=== PATIENT | male | born 1960 | race Caucasian/White ===

== ENCOUNTER 2020-08-14 16:06 | Inpatient (IN) ==
[2020-08-14] MEDS ORDERED: SODIUM CHLORIDE 0.9% 1000ML 1,000 ML IV STA (16:24)
[2020-08-14] MEDS ORDERED: ONDANSETRON INJ 2 MG/ML 2 ML VIAL IV STA (16:24)
--- NOTE | 2020-08-14 16:49 | XRay Report ---
XR KUB/Abdomen 1 view CLINICAL HISTORY: vomiting COMPARISON STUDY: 08/14/2020 FINDINGS: There are surgical clips present within the right upper quadrant consistent with a prior ch olecystectomy. There are dilated small bowel loops measuring up to 71 mm in diameter. There is contra st in the bladder secondary to a prior CT scan. IMPRESSION: Progressive small bowel dilatation consistent with a small bowel obstruction. ACT 112: Negative or not required by law. Electronically signed by: Jose Nava M.D. 08/14/2020 4:48 PM
[2020-08-14] MEDS ORDERED: cefOXitin 2,000 MG/60 ML BAG IV STA (16:53)
--- NOTE | 2020-08-14 16:53 | Emergency Department Note ---
Impression & Plan SBO (small bowel obstruction), Abdominal pain, Vomiting ED Provider Note NAME: RIK IYER AGE: 60 SEX: M : 1960 ARRIVES VIA: Walk-In INFORMANT: Patient, ED PROVIDER(S): Tate Olvera DO CHIEF COMPLAINT: Abdominal pain HPI: The patient is a 60-year-old male who presented to the emergency department for abdominal pain. The patient has a history of surgery 12 years ago for adhesions which led to a bowel obstruction. He had no previous surgical history prior to that. Approximately 2 years after that he had an episode of nausea and vomiting. And was found to have another bowel obstruction. The patient has had intermittent episodes similar to this in the past. He started having abdominal pain and vomiting as well as loose bowel movements over the course the last few days. He was seen in our facility overnight for similar complaints. At that time his radiographic study was felt to be consistent with a partial small bowel obstruction. The patient was feeling somewhat improved and was able to be discharged to home. He returns today with ongoing and worsening symptoms. His significant other also states that he has had abdominal distention. He has had no fever or rectal bleeding. He notices no hematemesis. The patient noticed emesis prior to arrival. The patient called his primary care physician after leaving our facility today. He was told to come back to the emergency department because of worsening and ongoing symptoms. ROS: See above HPI for pertinent positives & negatives. A total of 10 systems reviewed and were otherwise negative. PAST MEDICAL HISTORY: See Below PAST SURGICAL HISTORY: See Below FAMILY HISTORY: See Below SOCIAL HISTORY: See Below HOME MEDICATIONS: See Below ALLERGIES: See Below VITALS: See Below PHYSICAL EXAMINATION: GENERAL: The patient is awake and alert. The patient is very uncomfortable appearing. EYES: The conjunctivae are clear. The pupils are round and reactive. EARS, NOSE, MOUTH AND THROAT: The nose is without any evidence of any deformity. NECK: The neck is nontender and supple. RESPIRATORY: Normal respiratory effort is noted there is no evidence of wheezing rhonchi or rales CARDIOVASCULAR: Regular rate and rhythm noted there no murmurs rubs or gallops normal S1 normal S2. GASTROINTESTINAL: The abdomen is moderately distended and diffusely tender. There is no specific guarding or rigidity but abdominal tenderness is moderate. MUSCULOSKELETAL/EXTREMITIES: There is no evidence of gross deformity full range of motion is noted in the hips and shoulders. SKIN: There is no obvious evidence of any rash. There are no petechiae, pallor or cyanosis noted. NEUROLOGIC: Patient is awake alert and oriented x3. MEDICAL DECISION MAKING: The patient is a 60-year-old male who presented to the emergency department for an evaluation of abdominal pain. The patient was seen in our facility last evening for similar complaints. At that time he had a CT that was consistent with an early small bowel obstruction. The patient was treated in the emergency department and was feeling much better. He was discharged to home with the hopes that he would continue to improve. The patient's symptoms continued to worsen. He started noticing worsening nausea vomiting as well as abdominal distention. The patient returned to the emergency department for further evaluation. The patient was treated with IV fluids in the emergency department. He was also treated with an NG tube. I discussed the patient's laboratory and radiographic studies with him. I also [facility] They have agreed to evaluate the patient in the emergency department for further management and disposition. Triage Nursing notes reviewed. Prior medical records reviewed Vital Signs: reviewed and remarkable for elevated blood pressure and tachycardia. Differential diagnosis: Etiologies such as appendicitis, diverticulitis, obstruction, inflammatory bowel disease, renal colic, PUD, biliary pathology, pancreatitis, mesenteric ischemia, aortic pathology, infections, genitourinary, UTI, perforated viscus, as well as others were entertained. ER treatment provided: See below Diagnostics interpreted by me: ECG: none Cardiac Monitoring: An order was placed for continuous cardiac monitoring. The monitor shows a rate of 98 bpm with sinus rhythm. Laboratory studies: As stated above and show below. Imaging studies: See below Consultation(s): I discussed this case with Andre who is [facility] They will evaluate the patient in the emergency department for further management and disposition. Past Med/Surg History Medical History Abdominal adhesions Caused SBO. Surgery required to repair. Partial small bowel obstruction Social History Smoking Status: Never smoker Preferred Language: Citizen Of [place] Feels Safe at Home: Yes Allergies Allergies Allergy/AdvReac Type Severity Reaction Status Date / Time morphine Allergy Unknown GI SYMPTOMS Verified 08/14/20 18:16 acetaminophen AdvReac Unknown NAUSEA Verified 08/14/20 18:16 oxycodone AdvReac Unknown NAUSEA Verified 08/14/20 18:16 Home Meds Home Medications Medication Instructions Recorded Confirmed esomeprazole magnesium [Nexium] 20 mg PO DAILY 08/14/20 08/14/20 multivitamin 1 tab PO DAILY 08/14/20 08/14/20 naproxen [Naprosyn] 500 mg PO BID PRN 08/14/20 08/14/20 Results & Data (ED) Vital Signs Vital Signs - 24 hr 08/14/20 16:11 Temperature 36.4 C L Temperature Source Temporal Artery Scan Pulse Rate 110 H Respiratory Rate 20 Respiratory Effort / Characteristics Non-Labored Respiratory Depth Normal Respiratory Pattern Regular Blood Pressure 149/86 H Blood Pressure Mean 107 Blood Pressure Position Sitting Pulse Oximetry 96 Oxygen Delivery Method Room Air Sepsis Recent Fever Within 48 Hours No Sepsis New/Unexplained Change in Mental Status No Sepsis Action Taken by Nursing No Action Required Home Medications Current Medication List: was personally reviewed by me Laboratory Data Attestation: I reviewed the patient's lab results. Result diagrams: 08/14/20 16:50 08/14/20 16:50 Lab Results 08/14/20 08/14/20 Range/Units 16:50 16:50 WBC 10.15 (4.8-10.8) K/uL RBC 5.19 (4.7-6.1) M/uL Hgb 16.5 (14.0-18.0) g/dL Hct 46.2 (42-52) % MCV 89.0 (80-100) fL MCH 31.8 (25-34) pg MCHC 35.7 (32-36) g/dL RDW Std Deviation 43.3 (36.4-46.3) fL RDW Coeff of Jourdan 13.2 (11.5-14.5) % Plt Count 251 (130-400) K/uL MPV 11.4 H (7.4-10.4) fL Immature Gran % (Auto) 0.2 % Neut % (Auto) 78.1 % Lymph % (Auto) 11.3 % Centre % (Auto) 10.0 % Eos % (Auto) 0.3 % Baso % (Auto) 0.1 % Neut # (Auto) 7.92 H (1.4-6.5) K/uL Lymph # (Auto) 1.15 L (1.2-3.4) K/uL Centre # (Auto) 1.02 H (0.11-0.59) K/uL Eos # (Auto) 0.03 (0-0.5) K/uL Baso # (Auto) 0.01 (0-0.2) K/uL Immature Gran # (Auto) 0.02 (0.00-0.02) K/uL Sodium 141 (136-145) mmol/L Potassium 3.9 (3.5-5.1) mmol/L Chloride 110 H (98-107) mmol/L Carbon Dioxide 23 (21-32) mmol/L Anion Gap 8.0 (3-11) BUN 27 H (7-18) mg/dl Creatinine 1.05 (0.6-1.4) mg/dl Est Cr Clr Drug Dosing 112.0 ml/min Est GFR ( Amer) 89.0 Est GFR (Non-Af Amer) 76.8 BUN/Creatinine Ratio 25.6 H (10-20) Glucose 111 H (70-99) mg/dl Calcium 8.5 (8.5-10.1) mg/dl Total Bilirubin 3.3 H (0.2-1) mg/dl AST 43 H (15-37) U/L ALT 90 H (12-78) U/L Alkaline Phosphatase 65 (45-117) U/L Total Protein 7.6 (6.4-8.2) gm/dl Albumin 3.7 (3.4-5.0) gm/dl Globulin 3.9 (2.5-4.0) gm/dl Albumin/Globulin Ratio 0.9 (0.9-2) Lipase 79 (73-393) U/L Administered Medications Fentanyl Citrate (Fentanyl Citrate 100 Mcg/2 Ml Vial) 50 mcg IV Q15M PRN PRN Reason: Pain Stop: 08/28/20 16:23 Last Admin: 08/14/20 18:00 Dose: 50 mcg Documented by: [id number] Admin: 08/14/20 17:08 Dose: 50 mcg Documented by: [id number] Discontinued Medications Sodium Chloride (Nss 1000ml) 1,000 mls @ 999 mls/hr IV .Q1H1M STA Stop: 08/14/20 17:24 Last Admin: 08/14/20 17:07 Dose: 999 mls/hr Documented by: [id number] Cefoxitin Sodium (Mefoxin) 2,000 mg in 60 mls @ 100 mls/hr IV NOW STA Stop: 08/14/20 17:28 Last Admin: 08/14/20 17:08 Dose: 100 mls/hr Documented by: [id number] Ondansetron HCl (Ondansetron Inj 2 Mg/Ml 2 Ml Vial) 4 mg IV NOW STA Stop: 08/14/20 16:25 Last Admin: 08/14/20 17:08 Dose: 4 mg Documented by: [id number] Imaging Data Radiologist's Impression: KUB X-Ray 08/14/20 16:26 XR KUB/Abdomen 1 view CLINICAL HISTORY: vomiting COMPARISON STUDY: 08/14/2020 FINDINGS: There are surgical clips present within the right upper quadrant consistent with a prior cholecystectomy. There are dilated small bowel loops measuring up to 71 mm in diameter. There is contrast in the bladder secondary to a prior CT scan. IMPRESSION: Progressive small bowel dilatation consistent with a small bowel obstruction. ACT 112: Negative or not required by law. Electronically signed by: Jose Nava M.D. 08/14/2020 4:48 PM Discharge Plan Visit Data Chief Complaint: Abdominal Pain Stated Complaint: ABD PAIN ED Provider: Tate Olvera Discharge Problem: SBO (small bowel obstruction), Abdominal pain, Vomiting Patient Disposition: Admitted As Inpatient Condition: Good Forms Stand Alone Forms: Bundle It Prescriptions Prescriptions: No Action naproxen [Naprosyn] 500 mg Tablet 500 mg PO BID PRN (Reason: Back Pain) RF: 0 esomeprazole magnesium [Nexium] 20 mg Capsule,Delayed Release(Dr/Ec) 20 mg PO DAILY RF: 0 multivitamin 1 tab PO DAILY RF: 0 Referrals Referrals: Denver Kramer DO [Primary Care Provider] - Discharge Problem: Abdominal pain Qualifiers: Abdominal location: generalized Qualified Code(s): R10.84 - Generalized abdominal pain Vomiting Qualifiers: Vomiting type: unspecified Vomiting Intractability: non-intractable Nausea presence: with nausea Qualified Code(s): R11.2 - Nausea with vomiting, unspecified
[2020-08-14] MEDS: fentaNYL citrate 100 MCG/2 ML VIAL IV PRN ×3 (17:08→19:55)
--- NOTE | 2020-08-14 17:15 | History & Physical Report ---
Date of Service August 14, 2020 Assessment & Plan (1) Small bowel obstruction: - Admit to med surg - Consult general surgery to have on board due to hx of adhesions, previous exp lap for cholecystecomy in 2011, SBO in 2008 with adhesions. No current emergent needs for surgical procedure. - KUB from earlier today and this afternoon reviewed: progressive SBO. - NPO with worsening n/v after went home this afternoon. - Place NGT to LIS - Monitor I/Os - Continue NSS at 125 ml/hr - Pain control and antiemetics ordered (2) Obesity (BMI 30.0-34.9): - BMI of 30.8, encourage diet and exercise (3) Hyperlipidemia: - Hx of such, pt is not taking statin due to not wanting to take medications, follow with PCP (4) Nausea and vomiting: - Secondary to SBO as above, antiemetics and pain medication improving sx (5) Abdominal adhesions: - As above (6) DVT prophylaxis: -teds, encourage ambulation CODE: FULL Dispo: From home, likely to remain in the hospital x 1-2 days History of Present Illness Primary Care Provider: Denver Kramer DO This is a 60-year-old male with PMHx of HLD, history of small bowel obstruction in 2008, history of exploratory lap for cholecystectomy in 2011 who presents with acute onset of abdominal pain. Patient went to [facility] on Saturday night and thought that he had food poisoning because he developed abdominal pain, nausea, vomiting and diarrhea. By Saturday he was experiencing every 15-minute vomiting and diarrhea. Patient was evaluated here in the ER earlier this morning where he was found to have a partial small bowel obstruction. After treatment with IV fluids, pain medication he preferred to go home and was instructed to return if he had any worsening symptoms and if not to follow-up with his PCP early tomorrow. He represented this afternoon after attempting to drink Gatorade and consistently had worsening nausea and vomiting. His abdomen is more distended compared to earlier, pain has been treated with IV fentanyl, and is getting antiemetics which has improved nausea. Imaging with KUB was reviewed and appears to have progressive small bowel obstruction since this morning. He is agreeable to being admitted. Allergies Allergy/AdvReac Type Severity Reaction Status Date / Time morphine Allergy Unknown GI SYMPTOMS Verified 08/14/20 18:16 acetaminophen AdvReac Unknown NAUSEA Verified 08/14/20 18:16 oxycodone AdvReac Unknown NAUSEA Verified 08/14/20 18:16 Home Medications Medication Instructions Recorded Confirmed Type esomeprazole magnesium [Nexium] 20 mg PO DAILY 08/14/20 08/14/20 History multivitamin 1 tab PO DAILY 08/14/20 08/14/20 History naproxen [Naprosyn] 500 mg PO BID PRN 08/14/20 08/14/20 History Past Med/Surg History Medical History Abdominal adhesions Caused SBO. Surgery required to repair. Partial small bowel obstruction Social History Smoking Status: Never smoker Hx Alcohol Use: No Hx Substance Use: No Preferred Language: Wolof Communication Ability: Effective Reimbursement Liaison Required: No Beliefs That Will Affect Care: Restorationist Restorationist Beliefs: Temple Current Living Situation: Spouse Other Information That Helps Us Care for You: No Feels Safe at Home: Yes Safety Concerns: Feels Safe At This Time Assistive Devices: Glasses Review of Systems Review of Systems: Constitutional: No fever, sweats or chills Eyes: No diplopia, no worsening or blurred vision ENT: normal hearing, no trouble swallowing Respiratory: No cough, sputum, dyspnea at rest or on exertion Cardiovascular: No chest pain, tightness or palpitations Abdomen: As per HPI. Musculoskeletal: No joint pain, calf pain, swelling Neurologic: No weakness, numbness/tingling, or balance problems Psychiatric: No anxiety or depression Skin: No rash or itch Physical Exam Physical Exam: General: awake, alert, no apparent distress Head: Normocephalic, atraumatic ENT: PERRL, EOMI, no pharyngeal exudate, mucous membranes moist Chest: Clear to auscultation, on room air, no adventitious breath sounds Cardiac: Regular rate and rhythm, no murmur, no JVD, normal peripheral pulses, good capillary refill Abdominal: Hyperactive BC x 4 quadrants, + highpithed tinkling in the RUQ, +didstended, +tympanic on percussioni n RUQ, minimally tender to palpation s/p pain medication, no rebound or guarding Extremities: Normal inspection, no peripheral edema or erythema, calfs nontender to palpation Psych: Normal mood and affect Neuro: AAO x 3, strength intact bilaterally and rated 5/5, no motor deficits, speech is clear, no peripheral sensory deficits Results & Data Results & Data ([facility]) Vital Signs (Past 12 Hours) Vital Signs Temp Pulse Resp BP Pulse Ox 08/14/20 16:11 36.4 C L 110 H 20 149/86 H 96 Diagnostic Findings KUB X-Ray 08/14/20 16:26 XR KUB/Abdomen 1 view CLINICAL HISTORY: vomiting COMPARISON STUDY: 08/14/2020 FINDINGS: There are surgical clips present within the right upper quadrant consistent with a prior cholecystectomy. There are dilated small bowel loops measuring up to 71 mm in diameter. There is contrast in the bladder secondary to a prior CT scan. IMPRESSION: Progressive small bowel dilatation consistent with a small bowel obstruction. ACT 112: Negative or not required by law. Electronically signed by: Jose Nava M.D. 08/14/2020 4:48 PM ECG Additional Comments: Vent. Rate : 114 BPM Atrial Rate : 114 BPM P-R Int : 170 ms QRS Dur : 136 ms QT Int : 348 ms P-R-T Axes : 039 102 017 degrees QTc Int : 479 ms Sinus tachycardia Right bundle branch block Abnormal ECG When compared with ECG of 07-JUL-2012 23:52, Right bundle branch block is now Present Confirmed by Allan Sen ([id number]) on 08/14/2020 1:06:19 PM Code Status & VTE Plan Code Status Full -discussed with the patient and his at bedside Supervising Physician Co-Signing Physician Notes Date of Service: August 14, 2020 History and physical exam performed by me as detailed by Zoey Armenta PA-C History notable for 60-year-old man with history of SBO 2008 requiring surgery, cholecystectomy who initially presented to the ER yesterday for intractable nausea, vomiting and diarrhea with abdominal pain started yesterday. Was evaluated and found to have SBO. Patient felt better and wanted to be discharged from the ER. Symptoms recurred at home necessitating representation to the ER Physical exam notable for mildly distended, firm, nontender abdomen (had just gotten some pain meds), hyperactive bowel sounds Lab work notable for bilirubin of 3.3, AST of 43, ALT of 90 CT abdomen pelvis done on initial presentation today ER last night showed dilated proximal small bowel loops with normal caliber distal small bowel consistent with SBO, bilateral nephrolithiasis. Abdominal x-ray done on representation showed progressive SBO -Small bowel obstruction. We will start with conservative management Place NG tube to drainage N.p.o. and bowel rest IV Zofran as needed nausea vomiting Pain control IV fluids Get surgery on board in case conservative management fails. Other plans as detailed by Zoey Armenta PA-C
[2020-08-14 17:18] LABS: Basophils # (auto) 0.01 K/uL (0-0.2); Basophils % (auto) 0.1 %; Eosinophils # (auto) 0.03 K/uL (0-0.5); Eosinophils % (auto) 0.3 %; Hematocrit (blood only) 46.2 % (42-52); Hemoglobin 16.5 g/dL (14.0-18.0); Immature Granulocytes # (auto) 0.02 K/uL (0.00-0.02); Immature Granulocytes % (auto) 0.2 %; Lymphocytes # (auto) 1.15 K/uL (1.2-3.4); Lymphocytes % (auto) 11.3 %; Mean Corpuscular Hemoglobin 31.8 pg (25-34); Mean Corpuscular Hgb Conc 35.7 g/dL (32-36); Mean Platelet Volume 11.4 fL (7.4-10.4); Monocytes # (auto) 1.02 K/uL (0.11-0.59); Neutrophils # (auto) 7.92 K/uL (1.4-6.5); Neutrophils % (auto) 78.1 %; Platelet Count 251 K/uL (130-400); RDW Coefficient of Variation 13.2 % (11.5-14.5); RDW Standard Deviation 43.3 fL (36.4-46.3); Red Blood Count 5.19 M/uL (4.7-6.1); White Blood Count 10.15 K/uL (4.8-10.8)
[2020-08-14 17:35] LABS: Albumin Level 3.7 gm/dl (3.4-5.0); BUN Creatinine Ratio 25.6 (10-20); Calcium 8.5 mg/dl (8.5-10.1); Est GFR (Non-African American) 76.8; Potassium 3.9 mmol/L (3.5-5.1)
[2020-08-14 17:37] LABS: Albumin Globulin Ratio 0.9 (0.9-2); Bilirubin,Total 3.3 mg/dl (0.2-1); Globulin 3.9 gm/dl (2.5-4.0); Total Protein 7.6 gm/dl (6.4-8.2)
--- NOTE | 2020-08-14 17:59 | Communication Note ---
Date of Service: August 14, 2020 History and physical exam performed by me as detailed by Zoey Armenta PA-C History notable for 60-year-old man with history of SBO 2008 requiring surgery, cholecystectomy who initially presented to the ER yesterday for intractable nausea, vomiting and diarrhea with abdominal pain started yesterday. Was evaluated and found to have SBO. Patient felt better and wanted to be discharged from the ER. Symptoms recurred at home necessitating representation to the ER Physical exam notable for mildly distended, firm, nontender abdomen (had just g soila some pain meds), hyperactive bowel sounds Lab work notable for bilirubin of 3.3, AST of 43, ALT of 90 CT abdomen pelvis done on initial presentation today ER last night showed dilated proximal small bowel loops with normal caliber distal small bowel consistent with SBO, bilateral nephrolithiasis. Abdominal x-ray done on representation showed progressive SBO -Small bowel obstruction. We will start with conservative management Place NG tube to drainage N.p.o. and bowel rest IV Zofran as needed nausea vomiting Pain control IV fluids Get surgery on board in case conservative management fails. Other plans as detailed by Zoey Armenta PA-C
[2020-08-14] MEDS ORDERED: MoRPHine SULFATE 2 MG/ML CARP IV PRN (20:41)
[2020-08-14] MEDS ORDERED: ONDANSETRON INJ 2 MG/ML 2 ML VIAL IV PRN (20:41)
[2020-08-14] MEDS ORDERED: FAMOTIDINE 20MG/5ML IV PUSH IV SCH (21:00)
[2020-08-14] MEDS: FAMOTIDINE 20 MG in SYRINGE 3 ML IV SCH (21:19)
[2020-08-14] MEDS: SODIUM CHLORIDE 0.9% 1000ML 1,000 ML IV SCH (21:20)
[2020-08-14 23:02] LABS: Appearance Urine Clear (Clear); Bilirubin Urine Negative (Negative); Blood Urine Negative (Negative); Color Urine Dark Yellow; Glucose Urine UA Negative (Negative); Ketones Urine 1+ (Negative); Leukocyte Esterase Urine Negative (Negative); Nitrite Urine Negative (Negative); Protein Urine Negative (Negative); Specific Gravity Urine 1.033 (1.000-1.030); Urobilinogen Urine Negative (Negative); pH Urine 5.5 (4.5-7.5)
[2020-08-15] MEDS: SODIUM CHLORIDE 0.9% 1000ML 1,000 ML IV SCH ×3 (05:05→20:44)
[2020-08-15 06:26] LABS: White Blood Count 7.63 K/uL (4.8-10.8)
[2020-08-15 06:27] LABS: Hematocrit (blood only) 44.6 % (42-52); Hemoglobin 15.4 g/dL (14.0-18.0); Mean Corpuscular Hgb Conc 34.5 g/dL (32-36); Mean Corpuscular Volume 89.7 fL (80-100); Mean Platelet Volume 11.3 fL (7.4-10.4); Platelet Count 240 K/uL (130-400); RDW Coefficient of Variation 13.4 % (11.5-14.5); RDW Standard Deviation 44.5 fL (36.4-46.3); Red Blood Count 4.97 M/uL (4.7-6.1)
[2020-08-15 07:04] LABS: Albumin Level 3.4 gm/dl (3.4-5.0); BUN Creatinine Ratio 22.8 (10-20); Bilirubin,Total 2.5 mg/dl (0.2-1); Calcium 8.2 mg/dl (8.5-10.1); Est GFR (African American) 103.1; Est GFR (Non-African American) 88.9; Globulin 3.5 gm/dl (2.5-4.0); Potassium 3.8 mmol/L (3.5-5.1); Total Protein 6.9 gm/dl (6.4-8.2)
[2020-08-15] MEDS: FAMOTIDINE 20 MG in SYRINGE 3 ML IV SCH ×2 (08:37→20:41)
--- NOTE | 2020-08-15 11:58 | Surgery Consultation ---
Date of Consultation August 15, 2020 Assessment & Plan (1) SBO (small bowel obstruction): 60 year-old male with recurrent SBO with history of ex lap for SBO due to adhesions 12 years ago. NGT with 700 total output since placement. No leukocytosis. Afebrile. Abdomen is soft and nontender on examination. Now passing flatus. Plan: Would recommend continued conservative management with bowel rest, NGT decompression, and pain control as needed Encouraged ambulation Continue medical management Will follow along. Dr. Brandon has seen and examined pt, agrees with above. History of Present Illness Reason for Consultation: SBO Requesting Physician: Laila Guzman PA-C Attending Physician: Teena Schwartz MD History of Present Illness Jerome is a 60 year-old male with history of small bowel obstruction secondary to adhesive band 12 years ago requiring surgery and recurrent SBO who presented to ED on 08/13/2020 with abdominal pain, nausea and vomiting. CT scan showed evidence of small bowel obstruction. Patient felt better in ED and preferred to discharge home. Symptoms increased in severity and he presented back to emergency department last evening with increasing nausea, vomiting, and abdominal distention. NGT was placed. Has history of cholecystectomy laparoscopically. Jerome states he is feeling much better today. Passing some gas and no further nausea or vomiting. Abdominal pain is currently resolved. Would like to go home tonight as he has no other days of work after today. Allergies Allergy/AdvReac Type Severity Reaction Status Date / Time morphine Allergy Unknown GI SYMPTOMS Verified 08/14/20 18:16 acetaminophen AdvReac Unknown NAUSEA Verified 08/14/20 18:16 oxycodone AdvReac Unknown NAUSEA Verified 08/14/20 18:16 Home Medications Medication Instructions Recorded Confirmed Type esomeprazole magnesium [Nexium] 20 mg PO DAILY 08/14/20 08/14/20 History multivitamin 1 tab PO DAILY 08/14/20 08/14/20 History naproxen [Naprosyn] 500 mg PO BID PRN 08/14/20 08/14/20 History Patient History Medical History (Updated 08/14/20 @ 20:36 by Tate Olvera DO) Abdominal adhesions Caused SBO. Surgery required to repair. Partial small bowel obstruction Surgical History (Updated 08/15/20 @ 12:01 by Jes Brand PA-C) H/O exploratory laparotomy Hx laparoscopic cholecystectomy Social History Smoking Status: Never smoker Hx Alcohol Use: No Hx Substance Use: No Preferred Language: [place] Communication Ability: Effective Forming Tube Selector Required: No Beliefs That Will Affect Care: Jain Jain Beliefs: Mandaen Current Living Situation: Spouse Other Information That Helps Us Care for You: No Feels Safe at Home: Yes Safety Concerns: Feels Safe At This Time Assistive Devices: None Review of Systems Review of Systems: All systems reviewed & are unremarkable except as noted in HPI & below Physical Exam Constitutional: WD/WN, vitals as above Respiratory: normal respiratory effort; no respiratory distress and no labored breathing Gastrointestinal (Abdomen): Inspection/Auscultation: abdomen normal to ins pection and + abdominal surgical scar (midline laparotomy and cholecystectomy laparoscopic scars); abdomen not distended Percussion/Palpation: abdomen soft; abdomen nontender, no guarding and abdomen not rigid NGT present with dark bilious/brown output in canister Skin: no rashes, warm and dry Psychiatric: Orientation: alert and oriented x 3 Results & Data ([facility]) Vital Signs (Past 12 Hours) Vital Signs Temp Pulse Resp BP Pulse Ox 08/15/20 07:59 36.4 C L 96 H 19 149/84 H 97 Laboratory Results 08/15/20 08/15/20 08/14/20 Range/Units 06:11 06:11 Unknown WBC 7.63 (4.8-10.8) K/uL RBC 4.97 (4.7-6.1) M/uL Hgb 15.4 (14.0-18.0) g/dL Hct 44.6 (42-52) % MCV 89.7 (80-100) fL MCH 31.0 (25-34) pg MCHC 34.5 (32-36) g/dL RDW Std Deviation 44.5 (36.4-46.3) fL RDW Coeff of Jourdan 13.4 (11.5-14.5) % Plt Count 240 (130-400) K/uL MPV 11.3 H (7.4-10.4) fL Immature Gran % (Auto) % Neut % (Auto) % Lymph % (Auto) % [place] % (Auto) % Eos % (Auto) % Baso % (Auto) % Neut # (Auto) (1.4-6.5) K/uL Lymph # (Auto) (1.2-3.4) K/uL [place] # (Auto) (0.11-0.59) K/uL Eos # (Auto) (0-0.5) K/uL Baso # (Auto) (0-0.2) K/uL Immature Gran # (Auto) (0.00-0.02) K/uL Sodium 141 (136-145) mmol/L Potassium 3.8 (3.5-5.1) mmol/L Chloride 111 H (98-107) mmol/L Carbon Dioxide 25 (21-32) mmol/L Anion Gap 5.0 (3-11) BUN 21 H (7-18) mg/dl Creatinine 0.93 (0.6-1.4) mg/dl Est Cr Clr Drug Dosing 127.0 ml/min Est GFR ( Amer) 103.1 Est GFR (Non-Af Amer) 88.9 BUN/Creatinine Ratio 22.8 H (10-20) Glucose 102 H (70-99) mg/dl Calcium 8.2 L (8.5-10.1) mg/dl Total Bilirubin 2.5 H (0.2-1) mg/dl AST 39 H (15-37) U/L ALT 77 (12-78) U/L Alkaline Phosphatase 57 (45-117) U/L Total Protein 6.9 (6.4-8.2) gm/dl Albumin 3.4 (3.4-5.0) gm/dl Globulin 3.5 (2.5-4.0) gm/dl Albumin/Globulin Ratio 1.0 (0.9-2) Lipase (73-393) U/L Urine Color Dark Yellow Urine Appearance Clear (Clear) Urine pH 5.5 (4.5-7.5) Ur Specific Sun 1.033 H (1.000-1.030) Urine Protein Negative (Negative) Urine Glucose (UA) Negative (Negative) Urine Ketones 1+ H (Negative) Urine Blood Negative (Negative) Urine Nitrite Negative (Negative) Urine Bilirubin Negative (Negative) Urine Urobilinogen Negative (Negative) Ur Leukocyte Esterase Negative (Negative) 08/14/20 08/14/20 Range/Units 16:50 16:50 WBC 10.15 (4.8-10.8) K/uL RBC 5.19 (4.7-6.1) M/uL Hgb 16.5 (14.0-18.0) g/dL Hct 46.2 (42-52) % MCV 89.0 (80-100) fL MCH 31.8 (25-34) pg MCHC 35.7 (32-36) g/dL RDW Std Deviation 43.3 (36.4-46.3) fL RDW Coeff of Jourdan 13.2 (11.5-14.5) % Plt Count 251 (130-400) K/uL MPV 11.4 H (7.4-10.4) fL Immature Gran % (Auto) 0.2 % Neut % (Auto) 78.1 % Lymph % (Auto) 11.3 % [place] % (Auto) 10.0 % Eos % (Auto) 0.3 % Baso % (Auto) 0.1 % Neut # (Auto) 7.92 H (1.4-6.5) K/uL Lymph # (Auto) 1.15 L (1.2-3.4) K/uL [place] # (Auto) 1.02 H (0.11-0.59) K/uL Eos # (Auto) 0.03 (0-0.5) K/uL Baso # (Auto) 0.01 (0-0.2) K/uL Immature Gran # (Auto) 0.02 (0.00-0.02) K/uL Sodium 141 (136-145) mmol/L Potassium 3.9 (3.5-5.1) mmol/L Chloride 110 H (98-107) mmol/L Carbon Dioxide 23 (21-32) mmol/L Anion Gap 8.0 (3-11) BUN 27 H (7-18) mg/dl Creatinine 1.05 (0.6-1.4) mg/dl Est Cr Clr Drug Dosing 112.0 ml/min Est GFR ( Amer) 89.0 Est GFR (Non-Af Amer) 76.8 BUN/Creatinine Ratio 25.6 H (10-20) Glucose 111 H (70-99) mg/dl Calcium 8.5 (8.5-10.1) mg/dl Total Bilirubin 3.3 H (0.2-1) mg/dl AST 43 H (15-37) U/L ALT 90 H (12-78) U/L Alkaline Phosphatase 65 (45-117) U/L Total Protein 7.6 (6.4-8.2) gm/dl Albumin 3.7 (3.4-5.0) gm/dl Globulin 3.9 (2.5-4.0) gm/dl Albumin/Globulin Ratio 0.9 (0.9-2) Lipase 79 (73-393) U/L Urine Color Urine Appearance (Clear) Urine pH (4.5-7.5) Ur Specific [place] (1.000-1.030) Urine Protein (Negative) Urine Glucose (UA) (Negative) Urine Ketones (Negative) Urine Blood (Negative) Urine Nitrite (Negative) Urine Bilirubin (Negative) Urine Urobilinogen (Negative) Ur Leukocyte Esterase (Negative) Diagnostic Findings CT abd pelvis oral and IV con CLINICAL HISTORY: Nausea, vomiting, diarrhea. History of small bowel obstruction. Abnormal x-ray. COMPARISON STUDY: 07/21/2013, supine abdomen dated 08/14/2020 TECHNIQUE: The patient was scanned following administration of dilute oral contrast, and in a dynamic helical fashion during intravenous administration of 90 cc of Optiray 320 A dose lowering technique was utilized adhering to the principles of ALARA. CT DOSE: 1293.50 mGy.cm FINDINGS: Lower chest: There are bibasilar parenchymal opacities, likely atelectatic Liver: There is hepatic steatosis. No focal hepatic masses are visualized. Gallbladder: Surgically absent Spleen: Normal in size and attenuation. Pancreas: Unremarkable. Adrenal glands: Unremarkable. Kidneys: There is bilateral nephrolithiasis. There is no hydronephrosis. No alessandro id renal masses are visualized. Bowel: There are dilated small bowel loops with air-fluid levels measuring up to 49 mm in diameter. The distal small bowel is of normal caliber. The findings are indicative of a small bowel obstruction. The findings are somewhat similar to the preceding study. There is no evidence of acute diverticulitis. There is no evidence of acute appendicitis. Peritoneum: There is no intraperitoneal free air or abdominal ascites. Vasculature: The abdominal aorta is normal in course and caliber. Adenopathy: None. Pelvic viscera: The bladder, and pelvic viscera are unremarkable. Skeletal structures: No destructive osseous lesions are seen. IMPRESSION: 1. Dilated proximal small bowel loops with normal caliber distal small bowel. The findings are consistent with a small bowel obstruction. 2. No evidence of free air 3. Bilateral nephrolithiasis 4. Bibasilar parenchymal opacities statistically atelectatic XR KUB/Abdomen 1 view CLINICAL HISTORY: vomiting COMPARISON STUDY: 08/14/2020 FINDINGS: There are surgical clips present within the right upper quadrant consistent with a prior cholecystectomy. There are dilated small bowel loops measuring up to 71 mm in diameter. There is contrast in the bladder secondary to a prior CT scan. IMPRESSION: Progressive small bowel dilatation consistent with a small bowel obstruction.
--- NOTE | 2020-08-15 12:08 | Hospitalist Progress Note ---
Date of Service August 15, 2020 Assessment & Plan (1) Nausea and vomiting: (2) Small bowel obstruction: Patient seemed to be doing well with conservative management. NG tube drained for 50 cc of bilious fluid since admission Continue IV fluids for now Continue n.p.o. and bowel rest. 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 If doing well, may start clears and assess tolerance prior to assessing possible discharge. He is agreeable to this. Antiemetics as needed (3) Obesity (BMI 30.0-34.9): BMI of 30.8, encourage diet and exercise (4) Hyperlipidemia: Hx of such, pt is not taking statin due to not wanting to take medications, follow with PCP BP is mildly elevated since admission. Patient not a known hypertensive. No related to current medical condition. However, will continue to monitor and may get medical treatment if needed (5) DVT prophylaxis: -teds, encourage ambulation CODE: FULL Admission and Anticipated Discharge Date Admission Date: August 14, 2020 Subjective Patient seen and examined. Reports feeling better No nausea. Normal vomiting since admission No abdominal pain. Abdominal distention improved. Reports passing flatus. Denies chest pain, cough, shortness of breath Denies palpitations, exertional dyspnea Denies fevers, chills Denies dysuria, frequency, urgency Physical Exam Constitutional: + well hydrated; no acute distress Eyes: PERRL, conjunctivae normal, anicteric sclerae ENMT: NG tube in situ Respiratory: normal respiratory effort, lungs clear to auscultation Cardiovascular: Rate/Rhythm: regular rate and regular rhythm S1-S2. No pedal edema Gastrointestinal (Abdomen): normal bowel sounds, soft, nontender, no hepatosplenomegaly Musculoskeletal: no cyanosis or clubbing, extremities motor strength 5/5 Neurologic: PERRL, EOMI, accommodation nl, no face palsy, no dysarthria Psychiatric: A+Ox3, euthymic affect Results & Data Results & Data ([facility]) Vital Signs (Past 12 Hours) Vital Signs Temp Pulse Resp BP Pulse Ox 08/15/20 07:59 36.4 C L 96 H 19 149/84 H 97 Laboratory Results Laboratory Results - last 24 hr 04/08/14/20 08/14/20 16:50 16:50 Unknown WBC 10.15 RBC 5.19 Hgb 16.5 Hct 46.2 MCV 89.0 MCH 31.8 MCHC 35.7 RDW Std Deviation 43.3 RDW Coeff of Jourdan 13.2 Plt Count 251 MPV 11.4 H Immature Gran % (Auto) 0.2 Neut % (Auto) 78.1 Lymph % (Auto) 11.3 [place] % (Auto) 10.0 Eos % (Auto) 0.3 Baso % (Auto) 0.1 Neut # (Auto) 7.92 H Lymph # (Auto) 1.15 L [place] # (Auto) 1.02 H Eos # (Auto) 0.03 Baso # (Auto) 0.01 Immature Gran # (Auto) 0.02 Sodium 141 Potassium 3.9 Chloride 110 H Carbon Dioxide 23 Anion Gap 8.0 BUN 27 H Creatinine 1.05 Est Cr Clr Drug Dosing 112.0 Est GFR ( Amer) 89.0 Est GFR (Non-Af Amer) 76.8 BUN/Creatinine Ratio 25.6 H Glucose 111 H Calcium 8.5 Total Bilirubin 3.3 H AST 43 H ALT 90 H Alkaline Phosphatase 65 Total Protein 7.6 Albumin 3.7 Globulin 3.9 Albumin/Globulin Ratio 0.9 Lipase 79 Urine Color Dark Yellow Urine Appearance Clear Urine pH 5.5 Ur Specific [place] 1.033 H Urine Protein Negative Urine Glucose (UA) Negative Urine Ketones 1+ H Urine Blood Negative Urine Nitrite Negative Urine Bilirubin Negative Urine Urobilinogen Negative Ur Leukocyte Esterase Negative 08/15/20 08/15/20 06:11 06:11 WBC 7.63 RBC 4.97 Hgb 15.4 Hct 44.6 MCV 89.7 MCH 31.0 MCHC 34.5 RDW Std Deviation 44.5 RDW Coeff of Jourdan 13.4 Plt Count 240 MPV 11.3 H Immature Gran % (Auto) Neut % (Auto) Lymph % (Auto) [place] % (Auto) Eos % (Auto) Baso % (Auto) Neut # (Auto) Lymph # (Auto) [place] # (Auto) Eos # (Auto) Baso # (Auto) Immature Gran # (Auto) Sodium 141 Potassium 3.8 Chloride 111 H Carbon Dioxide 25 Anion Gap 5.0 BUN 21 H Creatinine 0.93 Est Cr Clr Drug Dosing 127.0 Est GFR ( Amer) 103.1 Est GFR (Non-Af Amer) 88.9 BUN/Creatinine Ratio 22.8 H Glucose 102 H Calcium 8.2 L Total Bilirubin 2.5 H AST 39 H ALT 77 Alkaline Phosphatase 57 Total Protein 6.9 Albumin 3.4 Globulin 3.5 Albumin/Globulin Ratio 1.0 Lipase Urine Color Urine Appearance Urine pH Ur Specific [place] Urine Protein Urine Glucose (UA) Urine Ketones Urine Blood Urine Nitrite Urine Bilirubin Urine Urobilinogen Ur Leukocyte Esterase
[2020-08-16] MEDS: SODIUM CHLORIDE 0.9% 1000ML 1,000 ML IV SCH ×2 (05:06→15:29)
[2020-08-16 07:09] LABS: Hematocrit (blood only) 42.5 % (42-52); Hemoglobin 15.1 g/dL (14.0-18.0); Mean Corpuscular Hemoglobin 31.5 pg (25-34); Mean Corpuscular Hgb Conc 35.5 g/dL (32-36); Mean Corpuscular Volume 88.5 fL (80-100); Mean Platelet Volume 10.9 fL (7.4-10.4); Platelet Count 231 K/uL (130-400); RDW Standard Deviation 42.2 fL (36.4-46.3); White Blood Count 7.22 K/uL (4.8-10.8)
[2020-08-16 07:46] LABS: Albumin Level 3.3 gm/dl (3.4-5.0); BUN Creatinine Ratio 19.5 (10-20); Calcium 8.3 mg/dl (8.5-10.1); Creatinine Clr Calc Pharmacy 135.7 ml/min; Est GFR (African American) 108.7; Est GFR (Non-African American) 93.8; Magnesium 2.1 mg/dl (1.8-2.4); Potassium 3.6 mmol/L (3.5-5.1)
[2020-08-16 07:49] LABS: Albumin Globulin Ratio 0.9 (0.9-2); Bilirubin,Total 2.8 mg/dl (0.2-1); Globulin 3.5 gm/dl (2.5-4.0); Phosphorus 2.2 mg/dl (2.5-4.9); Total Protein 6.8 gm/dl (6.4-8.2)
--- NOTE | 2020-08-16 08:40 | Surgery Progress Note ---
Date of Service August 16, 2020 Assessment & Plan (1) SBO (small bowel obstruction): 60 year-old male with recurrent SBO with history of ex lap for SBO due to adhesions 12 years ago. NGT with 550 last shift. No leukocytosis. Afebrile. Abdomen is soft and nontender on examination. +passing flatus and liquid stool. Plan: Can discontinue NGT, start clears slowly continue ambulating hallway continue medical management Dr. Brandon was present during my examination, agrees with above. Admission and Anticipated Discharge Date Admission Date: August 14, 2020 Subjective feeling good still passing gas and had some diarrhea again no abdominal pain, some gas pain but no pain similar to pain that brought him to the ED no distention ambulating hallway multiple times Physical Exam Constitutional: WD/WN, vitals as above Respiratory: normal respiratory effort; no respiratory distress and no labored breathing Gastrointestinal (Abdomen): Inspection/Auscultation: abdomen normal to inspection and + abdominal surgical scar (midline laparotomy scar, laparoscopic cholecystectomy scars); abdomen not distended Percussion/Palpation: abdomen soft; abdomen nontender, no guarding and abdomen not rigid Skin: no rashes, warm and dry Results & Data ([facility]) Vital Signs (Past 12 Hours) Vital Signs Temp Pulse Resp BP Pulse Ox 08/16/20 08:03 36.8 C 93 H 18 133/82 95 08/15/20 23:30 36.7 C 88 16 144/82 H 94 Laboratory Results 08/16/20 08/16/20 Range/Units 06:47 06:47 WBC 7.22 (4.8-10.8) K/uL RBC 4.80 (4.7-6.1) M/uL Hgb 15.1 (14.0-18.0) g/dL Hct 42.5 (42-52) % MCV 88.5 (80-100) fL MCH 31.5 (25-34) pg MCHC 35.5 (32-36) g/dL RDW Std Deviation 42.2 (36.4-46.3) fL RDW Coeff of Jourdan 13.0 (11.5-14.5) % Plt Count 231 (130-400) K/uL MPV 10.9 H (7.4-10.4) fL Sodium 141 (136-145) mmol/L Potassium 3.6 (3.5-5.1) mmol/L Chloride 110 H (98-107) mmol/L Carbon Dioxide 27 (21-32) mmol/L Anion Gap 4.0 (3-11) BUN 17 (7-18) mg/dl Creatinine 0.87 (0.6-1.4) mg/dl Est Cr Clr Drug Dosing 135.7 ml/min Est GFR ( Amer) 108.7 Est GFR (Non-Af Amer) 93.8 BUN/Creatinine Ratio 19.5 (10-20) Glucose 83 (70-99) mg/dl Calcium 8.3 L (8.5-10.1) mg/dl Phosphorus 2.2 L (2.5-4.9) mg/dl Magnesium 2.1 (1.8-2.4) mg/dl Total Bilirubin 2.8 H (0.2-1) mg/dl AST 36 (15-37) U/L ALT 75 (12-78) U/L Alkaline Phosphatase 58 (45-117) U/L Total Protein 6.8 (6.4-8.2) gm/dl Albumin 3.3 L (3.4-5.0) gm/dl Globulin 3.5 (2.5-4.0) gm/dl Albumin/Globulin Ratio 0.9 (0.9-2)
[2020-08-16] MEDS ORDERED: POTASSIUM PHOS 3 MMOL/1 ML INFUSION IV STA (08:45)
[2020-08-16] MEDS ORDERED: POTASSIUM PHOSPHATE 24 MMOL in SODIUM CHLORIDE 0.9% 500 ML IV ONE (09:15)
[2020-08-16] MEDS: FAMOTIDINE 20 MG in SYRINGE 3 ML IV SCH (09:18)
--- NOTE | 2020-08-16 16:05 | Discharge Summary ---
Date of Service August 16, 2020 Admission HPI Per Admitting Provider This is a 60-year-old male with PMHx of HLD, history of small bowel obstruction in 2008, history of exploratory lap for cholecystectomy in 2011 who presents with acute onset of abdominal pain. Patient went to [facility] on Saturday night and thought that he had food poisoning because he developed abdominal pain, nausea, vomiting and diarrhea. By Saturday he was experiencing every 15-minute vomiting and diarrhea. Patient was evaluated here in the ER earlier this morning where he was found to have a partial small bowel obstruction. After treatment with IV fluids, pain medication he preferred to go home and was instructed to return if he had any worsening symptoms and if not to follow-up with his PCP early tomorrow. He represented this afternoon after attempting to drink Gatorade and consistently had worsening nausea and vomiting. His abdomen is more distended compared to earlier, pain has been treated with IV fentanyl, and is getting antiemetics which has improved nausea. Imaging with KUB was reviewed and appears to have progressive small bowel obstruction since this morning. He is agreeable to being admitted. Admission Exam Per Admitting Provider General: awake, alert, no apparent distress Head: Normocephalic, atraumatic ENT: PERRL, EOMI, no pharyngeal exudate, mucous membranes moist Chest: Clear to auscultation, on room air, no adventitious breath sounds Cardiac: Regular rate and rhythm, no murmur, no JVD, normal peripheral pulses, good capillary refill Abdominal: Hyperactive BC x 4 quadrants, + highpithed tinkling in the RUQ, +didstended, +tympanic on percussioni n RUQ, minimally tender to palpation s/p pain medication, no rebound or guarding Extremities: Normal inspection, no peripheral edema or erythema, calfs nontender to palpation Psych: Normal mood and affect Neuro: AAO x 3, strength intact bilaterally and rated 5/5, no motor deficits, speech is clear, no peripheral sensory deficits Principal Diagnosis Small bowel obstruction Discharge Exam Constitutional + well hydrated; no acute distress Eyes PERRL, conjunctivae normal, anicteric sclerae Respiratory normal respiratory effort, lungs clear to auscultation Cardiovascular Rate/Rhythm: regular rate and regular rhythm Gastrointestinal (Abdomen) normal bowel sounds, soft, nontender, no hepatosplenomegaly Musculoskeletal no cyanosis or clubbing, extremities motor strength 5/5 Neurologic PERRL, EOMI, accommodation nl, no face palsy, no dysarthria Psychiatric A+Ox3, euthymic affect Discharge Data Allergies Allergy/AdvReac Type Severity Reaction Status Date / Time morphine Allergy Unknown GI SYMPTOMS Verified 08/14/20 18:16 acetaminophen AdvReac Unknown NAUSEA Verified 08/14/20 18:16 oxycodone AdvReac Unknown NAUSEA Verified 08/14/20 18:16 Consultations 08/14/20 16:59 ED Decision to Admit Stat 08/14/20 20:41 Consult General Surgery Routine Hospital Course (1) Nausea and vomiting: (2) Small bowel obstruction: Patient presented with nausea, vomiting, abdominal pain to the ER. His symptoms initially improved when he wanted to go home and was discharged home from the ER only to be shortly after recurrence of symptoms. CT abdomen pelvis done on initial ER visit showed dilated proximal small bowel normal caliber distal small bowel consistent with small bowel obstruction, bilateral nephrolithiasis and no evidence of free air. KUB done on second presentation to the ER showed progressive small bowel dilatation. Patient was manage conservatively. NG tube was placed and drained a total of 1300 cc since admission. Patient symptoms resolved. Was started on clear liquid diet this morning which he has been tolerating well since without any recurrence of symptoms Has been having bowel movement. 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 He stated he is not getting paid for the days he is in the hospital. Patient educated on slow advancement of diet at home and to return to ER if symptoms recur He stated he already has appointment with his PCP Patient's BP has been running in 140s/70s most of the time since admission. He denied any history of hypertension. This may be related to acute illness. Advised to follow up this with PCP as if his BP stays persistently elevated, he will need treatment. He agreed to this (3) Obesity (BMI 30.0-34.9): BMI of 30.8, encourage diet and exercise (4) Hyperlipidemia: Hx of such, pt is not taking statin due to not wanting to take med ications, follow with PCP BP is mildly elevated since admission. Patient not a known hypertensive. No related to current medical condition. However, will continue to monitor and may get medical treatment if needed Total Time Total Time Spent Total Time Spent (In Minutes): 40 Total Time Includes: Examination of the Patient, Discharge Planning and Medication Reconciliation Discharge Plan Discharge Items Patient Disposition: Home - Self-Care Reason For Visit: Nausea, vomiting and abdominal pain Discharge Diagnosis: Small bowel obstruction Condition on Discharge: Good Activity: Resume your previous activity Non-emergency contact: Primary Care Provider Call non-emergency contact if: you have any medication questions and your symptoms worsen Follow-up/Referrals: Denver Kramer DO [Primary Care Provider] - (Date & Time 08/19/2020 12:00 PM Provider Denver Kramer DO Department [facility] ) Diet: Heart Healthy Diet Comment: Please follow prodromal advancement of diet as discussed from liquid diet Addtl Attending Provider Instructions: Mr. Archuleta. You presented to the hospital for persistent nausea, vomiting and abdominal pain. You were evaluated and found to have small bowel obstruction. This was managed conservatively with bowel rest and nasogastric tube. Your symptoms resolved. You were started on clear liquid diet and been advanced slowly. You have been tolerating this and you need to continue to slowly advance diet as tolerated. Monitor for signs of recurrence. Feel free to come back to the ER if symptoms recur. Please follow-up with your primary doctor. It was a pleasure taking care of you Pending Studies at Discharge: No Stand-Alone Forms: My [facility] [employer], Smoking Cessation Medications and DC Order Prescriptions: Continued naproxen [Naprosyn] 500 mg Tablet 500 mg PO BID PRN (Reason: Back Pain) RF: 0 esomeprazole magnesium [Nexium] 20 mg Capsule,Delayed Release(Dr/Ec) 20 mg PO DAILY RF: 0 multivitamin 1 tab PO DAILY RF: 0 Discharge Orders: Discharge Order (Routine); Ordered 08/16/20 Ordered By: Teena Schwartz Admission Data Admit Date/Time: 08/14/20 17:55 Attending Provider: Teena Schwartz I. Admit Provider: Teena Schwartz I. Primary Care Provider: Denver Kramer Other Providers: Teena Schwartz I. ; Wale Ponce Other Interventions: Discharge Summary Assessment (RN) Last Done: 08/16/20 16:02
== END 2020-08-16 17:38 | disposition home or self-care (01) | DRG 390 ==
LOC: ED 16:06 → 3W 17:55

== ENCOUNTER 2022-10-26 16:06 | Inpatient (IN) ==
[2022-10-26] MEDS ORDERED: ACETAMINOPHEN 1,000 MG/100 ML VIAL IV STA (16:37)
[2022-10-26] MEDS ORDERED: LORazepam 2 MG/1 ML VIAL IV STA (16:37)
[2022-10-26] MEDS ORDERED: SODIUM CHLORIDE 0.9% 1000ML 1,000 ML IV STA (16:37)
[2022-10-26] MEDS ORDERED: ONDANSETRON INJ 2 MG/ML 2 ML VIAL IV STA (16:37)
--- NOTE | 2022-10-26 16:37 | ED Triage Note ---
Date of Service October 26, 2022 History of Present Illness This patient was briefly evaluated while in triage. An abbreviated physical exam was performed. This patient is a 62-year-old Male who presents to the ED for evaluation of vomiting and diarrhea. Concerned for SBO. Has had this in the past. Vomiting is billious. Started with vomiting today. Diarrhea yesterday. Had bowel obstruction requiring surgery in past. Hx Cholecystectomy. Actively vomiting in triage. Physical Exam Limited Triage Exam: VITALS: Vitals are noted on the nurse's note and reviewed by myself. Vital signs stable. GENERAL: White male who is uncomfortable on presentation. He is actively vomiting in triage. HEART: Regular rate and rhythm without murmurs gallops or rubs. LUNGS: Clear to auscultation bilaterally without wheezes, rales or rhonchi. No retractions or accessory muscle use. NEURO: Patient was alert and oriented to person place and time. CN II through XII grossly intact. Initial orders for labs and / or imaging were placed and patient was placed in the waiting area until a bed is available. Please see further documentation for the full ED course. MDM / Impression Impression Impression: Generalized abdominal pain, Nausea & vomiting
[2022-10-26] MEDS ORDERED: HYDROmorphone INJ 0.5 MG/0.5 ML SYR IV PRN (16:47)
--- NOTE | 2022-10-26 16:56 | Emergency Department Note ---
Impression & Plan Generalized abdominal pain, Nausea & vomiting ED Provider Note INFORMANT: Patient and ED PROVIDER(S): Keith Fernandes MD CHIEF COMPLAINT: Abdominal pain PLAN: Disposition: Admitted Condition: Good Outpatient prescription management: none Referral: None MEDICAL DECISION MAKING: Patient presented. Had history of bowel obstruction and states feels the same. He had an IV established. Fluids were administered. The patient was treated with IV Zofran and Dilaudid. He was taken emergently for CT imaging. Patient was found to have a bowel obstruction with a possible transition in the jejunum. Patient had an NG tube placed and had a significant amount of bilious fluid removed from his stomach. Patient felt significantly better with this. I did discuss the case with general surgery on-call, Dr. Smith. She agreed with conservative management and will consult on the patient. [facility]. Case was discussed with Ashley almanza NP. Patient will be admitted under Dr. Lezama. Discussed with manager corporate strategy After review of the information above and other included data, I feel the patient requires admission. Triage Nursing notes reviewed and agree them. Vital Signs: reviewed and remarkable for no significant abnormalities Prior /Outside records reviewed: Prior surgical consultation reviewed. Differential diagnosis: Obstruction,Appendicitis, testicular torsion, infections, diverticulitis, UTI, mesenteric ischemia, aortic pathology, inflammatory bowel disease, renal colic, PUD, pancreatitis, biliary pathology, hernia, volvulus, constipation, as well as other pathologies. Diagnostics, as interpreted by me: ECG: none Cardiac Monitoring: Cardiac monitoring ordered by me: The patient was placed on continuous cardiac monitoring and observed. It revealed a normal sinus rhythm at 97 beats per minute without ectopy or evidence of dysrhythmia. Medical decision rules: none Imaging studies: CT scan as noted above. Bowel obstruction. I refer you to the EMR for further details. HPI: The patient is a 62 year old male who presents to the Emergency Room with complaints of abdominal pain. This started yesterday and is generalized. The patient also notes the following associated symptoms, nausea and vomiting. Patient also notes bloating. He has a history of bowel obstruction and states this feels the same. The patient has tried Zofran relieving factors. Current pain is rated as 9/10. Pt denies LOC, headache, fevers, chills, diaphoresis, visual changes, neck pain, chest pain, breathing difficulties, back pain, melena, hematochezia, urinary symptoms, numbness, weakness, lymphadenopathy, rash, or other complaints. PAST MEDICAL HISTORY: See Below, adhesions, bowel obstruction PAST SURGICAL HISTORY: See Below, cholecystectomy, lysis of adhesions SOCIAL HISTORY: See Below, HOME MEDICATIONS: See Below ALLERGIES: See Below VITALS: See Below PHYSICAL EXAMINATION: GENERAL: Awake, alert, uncomfortable-appearing, in no distress HENT: Normocephalic, atraumatic. Oropharynx unremarkable. EYES: Normal conjunctiva. Sclera non-icteric. NECK: Inspection normal. Non-tender. Supple. No nuchal rigidity. FROM. No masses. RESPIRATORY: Clear to auscultation. No wheezes. No rales. Normal respiratory effort. CARDIAC: Normal rate. Normal rhythm. No murmurs. No rubs. Extremities warm and well perfused. Pulses equal. No JVD. GI: Soft, moderately-distended. General tenderness to palpation. No rebound or guarding. No masses. RECTAL: Deferred. MUSCULOSKELETAL: Atraumatic. Chest examination reveals no tenderness. The back is symmetrical on inspection without obvious abnormality. There is no CVA tenderness to palpation. No joint edema. LOWER EXTREMITIES: Calves are equal size bilaterally and non-tender. No edema. No discoloration. NEURO: Normal sensorium. No sensory or motor deficits noted. SKIN: No rash or jaundice noted. Past Med/Surg History Medical History (Updated 10/26/22 @ 19:19 by Selena Lezama DO) Abdominal adhesions Caused SBO. Surgery required to repair. BPH with obstruction/lower urinary tract symptoms Dyslipidemia GERD (gastroesophageal reflux disease) Hepatic steatosis Obesity Partial small bowel obstruction Surgical History H/O exploratory laparotomy 08/25/2008 Hx laparoscopic cholecystectomy 10/2011 Family History Father Cancer Coronary heart disease Brother Diabetes Social History Smoking Status: Never smoker Hx Alcohol Use: Yes Alcohol type: beer Hx Substance Use: No Preferred Language: Maori Communication Ability: Effective Role Player Required: No Beliefs That Will Affect Care: None Current Living Situation: Spouse Other Information That Helps Us Care for You: No Feels Safe at Home: Yes Safety Concerns: Feels Safe At This Time Assistive Devices: Glasses Allergies Allergies Allergy/AdvReac Type Severity Reaction Status Date / Time morphine AdvReac Intermediate GI SYMPTOMS Verified 10/26/22 18:06 oxycodone AdvReac Intermediate NAUSEA Verified 10/26/22 18:06 hydromorphone [From Dilaudid] AdvReac Unknown Nausea Verified 10/26/22 18:57 Home Meds Home Medications Medication Instructions Recorded Confirmed esomeprazole magnesium 20 mg 20 mg PO DAILYBB 08/14/20 10/26/22 capsule,delayed release (Nexium) naproxen 500 mg tablet (Naprosyn) 500 mg PO BID PRN Back Pain 08/14/20 10/26/22 aspirin 81 mg tablet,delayed 81 mg PO .Q3DAYS 10/26/22 10/26/22 release milk thistle 500 mg capsule 500 mg PO DAILY 10/26/22 10/26/22 multivitamin 1 tab PO DAILY 10/26/22 10/26/22 Results & Data (ED) Vital Signs Vital Signs - 24 hr 10/26/22 16:34 10/26/22 17:25 10/26/22 17:33 Temperature 36.0 C L Temperature Source Temporal Artery Scan Pulse Rate 111 H 72 Pulse Rate [Right Finger] 96 H Respiratory Rate 18 10 L 22 Respiratory Effort / Characteristics Non-Labored Spontaneous Respiratory Depth Normal Blood Pressure 136/90 Blood Pressure [Right Arm] 127/81 Blood Pressure Mean 105 Blood Pressure Mean [Right Arm] 96 Pulse Oximetry 96 95 94 Oxygen Delivery Method Room Air Room Air Room Air Sepsis Recent Fever Within 48 Hours No Sepsis New/Unexplained Change in Mental Status N/A Sepsis Action Taken by Nursing No Action Required 10/26/22 17:38 Temperature Temperature Source Pulse Rate 98 H Pulse Rate [Right Finger] Respiratory Rate Respiratory Effort / Characteristics Respiratory Depth Blood Pressure Blood Pressure [Right Arm] Blood Pressure Mean Blood Pressure Mean [Right Arm] Pulse Oximetry Oxygen Delivery Method Sepsis Recent Fever Within 48 Hours Sepsis New/Unexplained Change in Mental Status Sepsis Action Taken by Nursing Laboratory Data 10/26/22 16:37 10/26/22 16:37 Lab Results 10/26/22 10/26/22 Range/Units 16:37 16:37 WBC 20.67 H (4.8-10.8) K/ul RBC 6.35 H (4.70-6.10) M/uL Hgb 19.4 H (14.0-18.0) g/dl Hct 55.9 H (42.0-52.0) % MCV 88.0 (80.0-100.0) fL MCH 30.6 (25.0-34.0) pg MCHC 34.7 (32.0-36.0) g/dL RDW Std Deviation 41.1 (36.4-46.3) fL RDW Coeff of Jourdan 12.9 (11.5-14.5) % Plt Count 325 (130-400) K/uL MPV 11.0 (9.4-12.4) fL Immature Gran % (Auto) 0.4 % Neut % (Auto) 88.1 % Lymph % (Auto) 5.8 % [place] % (Auto) 5.4 % Eos % (Auto) 0.1 % Baso % (Auto) 0.2 % Neut # (Auto) 18.21 H (1.40-6.50) K/uL Lymph # (Auto) 1.20 (1.2-3.4) K/uL [place] # (Auto) 1.11 H (0.11-0.59) K/uL Eos # (Auto) 0.02 (0-0.50) K/uL Baso # (Auto) 0.04 (0-0.2) K/uL Immature Gran # (Auto) 0.09 (0.01-0.20) K/uL Sodium 138 (136-145) mmol/L Potassium 4.1 (3.5-5.1) mmol/L Chloride 100 (98-107) mmol/L Carbon Dioxide 28 (21-32) mmol/L Anion Gap 10 (3-11) BUN 26 H (6-23) mg/dl Creatinine 1.24 (0.6-1.4) mg/dl Est Cr Clr Drug Dosing 92.4 ml/min Est GFR ( Amer) 71.8 ml/min Est GFR (Non-Af Amer) 61.9 ml/min BUN/Creatinine Ratio 21.0 H (10-20) Glucose 141 H (70-99(Fasting)) mg/dl Calcium 10.3 (8.6-10.3) mg/dl Total Bilirubin 2.8 H (0.2-1.0) mg/dl AST 33 (13-39) U/L ALT 50 (7-52) U/L Alkaline Phosphatase 70 (34-104) U/L Troponin I High Sens < 2.3 (0-20) pg/ml Total Protein 9.0 H (6.0-8.3) gm/dl Albumin 5.1 H (3.4-5.0) gm/dl Globulin 3.9 (2.5-4.0) gm/dl Albumin/Globulin Ratio 1.3 (0.9-2) Lipase 30 (11-82) U/L Administered Medications Acetaminophen (Ofirmev) 1,000 mg in 100 mls @ 400 mls/hr IV Q8H PRN PRN Reason: pain/fever Stop: 10/29/22 18:56 Last Infusion: 10/26/22 20:29 Dose: 0 mls/hr Documented By: Admin: 10/26/22 20:10 Dose: 400 mls/hr Documented By: MICHELE Famotidine 20 mg/ Syringe 5 mls @ 2.5 mls/min IV Q12H PRN PRN Reason: heartburn Stop: 11/25/22 20:38 Last Admin: 10/26/22 22:43 Dose: 2.5 mls/min Documented By: FPC Lactated Ringer's (Lr) 1,000 mls @ 125 mls/hr IV .Q8H CRISTINO Stop: 11/25/22 20:38 Last Admin: 10/26/22 20:50 Dose: 125 mls/hr Documented By: GIBRAN Ketorolac Tromethamine (Ketorolac Tromethamine 15 Mg/Ml Vial) 15 mg IV Q6H PRN PRN Reason: severe pain Stop: 10/31/22 18:56 Last Admin: 10/26/22 23:37 Dose: 15 mg Documented By: FPC Discontinued Medications Hydromorphone HCl (Hydromorphone Inj 0.5 Mg/0.5 Ml Syr) 0.5 mg IV Q15M PRN PRN Reason: Pain Stop: 11/09/22 16:46 Last Admin: 10/26/22 17:04 Dose: 0.5 mg Documented By: NRAntonette Sodium Chloride (Nss 1000ml) 1,000 mls @ 999 mls/hr IV .Q1H1M STA Stop: 10/26/22 17:37 Last Infusion: 10/26/22 19:51 Dose: 0 mls/hr Documented By: Admin: 10/26/22 17:37 Dose: 999 mls/hr Documented By: DONAVON Acetaminophen (Ofirmev) 1,000 mg in 100 mls @ 400 mls/hr IV NOW STA Stop: 10/26/22 16:51 Last Admin: 10/26/22 18:56 Dose: Not Given Documented By: MICHELE Lorazepam (Lorazepam 2 Mg/1 Ml Vial) 0.5 mg IV NOW STA Stop: 10/26/22 16:38 Last Admin: 10/26/22 18:57 Dose: Not Given Documented By: MICHELE Ondansetron HCl (Ondansetron Inj 2 Mg/Ml 2 Ml Vial) 4 mg IV NOW STA Stop: 10/26/22 16:38 Last Admin: 10/26/22 17:03 Dose: 4 mg Documented By: DONAVON Imaging Data Radiologist's Impression: Abdomen/Pelvis CT 10/26/22 16:43 CT SCAN OF THE ABDOMEN AND PELVIS WITHOUT IV CONTRAST CLINICAL HISTORY: Generalized abdominal pain. Vomiting. COMPARISON STUDY: Abdominal CT dated 08/14/2020. TECHNIQUE: CT scan of the abdomen and pelvis is performed from the lung bases to the proximal femora. Images are reviewed in the axial, sagittal, and coronal planes. IV contrast was not administered for this examination. Note that the examination is significantly suboptimal without oral and IV contrast. A dose lowering technique was utilized adhering to the principles of ALARA. CT DOSE: 1718.47 mGy.cm FINDINGS: Lung bases: The heart is normal in size and without pericardial effusion. There are scattered coronary artery calcifications. Catheter granulomas are noted. There is elevation of the left hemidiaphragm with bibasilar scarring/atelectas is. No airspace consolidation or pleural effusion is identified. Liver: The unenhanced liver is enlarged, measuring 19 cm in length. The liver demonstrates diffusely diminished attenuation indicating severe steatosis.. There is no intrahepatic biliary ductal dilatation. Gallbladder: Surgically absent noting clips in the gallbladder fossa. Spleen: Normal in size and attenuation. Pancreas: Mildly atrophic and grossly unremarkable. Adrenal glands: Unremarkable. Kidneys: The unenhanced kidneys are normal in size and without hydronephrosis. There are at least 4 nonobstructing right renal calculi which measure up to 5 mm. There are at least 5 nonobstructing left calculi which measure up to 6 mm. No ureteral stone is seen. There is no evidence of contour deforming renal mass lesion. Abdominal vasculature: The abdominal aorta is normal in course and caliber noting scattered foci of atherosclerotic calcification. Bowel: The proximal small bowel loops are distended and fluid-filled, measuring up to 5 cm in diameter. A transition point is suggested in the distal jejunum on axial image #212. The distal small bowel colon are decompressed, and the appearance is consistent with a high-grade small bowel obstruction. No focally thick-walled bowel loops are seen. No pneumatosis intestinalis or portal venous gas is identified. The appendix is well-visualized and normal. Peritoneum: There is no intraperitoneal free air or abdominal ascites. There is evidence of previous ventral hernia repair. Lymphadenopathy: None. Pelvic viscera: The bladder, prostate, and seminal vesicles are normal as visualized. There is a small fat-containing right inguinal hernia. Skeletal structures: No lytic or blastic lesions are seen. IMPRESSION: 1. Small bowel obstruction, with a transition point suggested involving the distal jejunum. This is likely on the basis of adhesions. 2. No intraperitoneal free air is seen. No focally thick-walled bowel loops are identified and there is no pneumatosis intestinalis or portal venous gas. 3. Hepatomegaly and severe hepatic steatosis. 4. Bilateral nephrolithiasis. 5. Additional findings as above. ACT 112: Negative or not required by law. Electronically signed by: Rickey Guajardo M.D. 10/26/2022 5:40 PM Discharge Plan Visit Data Chief Complaint: Abdominal Pain Stated Complaint: VOMITING, ABDOMINAL PAIN ED Provider: Keith Fernandes Discharge Problem: Generalized abdominal pain, Nausea & vomiting Patient Disposition: Admitted As Inpatient Discharge Instructions Interventions: ED Discharge Assessment Last Done: 10/26/22 20:22
[2022-10-26 17:26] LABS: Basophils # (auto) 0.04 K/uL (0-0.2); Basophils % (auto) 0.2 %; Eosinophils # (auto) 0.02 K/uL (0-0.50); Eosinophils % (auto) 0.1 %; Hematocrit (blood only) 55.9 % (42.0-52.0); Hemoglobin 19.4 g/dl (14.0-18.0); Immature Granulocytes # (auto) 0.09 K/uL (0.01-0.20); Immature Granulocytes % (auto) 0.4 %; Lymphocytes % (auto) 5.8 %; Mean Corpuscular Hemoglobin 30.6 pg (25.0-34.0); Mean Corpuscular Hgb Conc 34.7 g/dL (32.0-36.0); Monocytes # (auto) 1.11 K/uL (0.11-0.59); Monocytes % (auto) 5.4 %; Neutrophils # (auto) 18.21 K/uL (1.40-6.50); Neutrophils % (auto) 88.1 %; Platelet Count 325 K/uL (130-400); RDW Coefficient of Variation 12.9 % (11.5-14.5); RDW Standard Deviation 41.1 fL (36.4-46.3); Red Blood Count 6.35 M/uL (4.70-6.10); White Blood Count 20.67 K/ul (4.8-10.8)
[2022-10-26 17:38] LABS: Alanine Aminotransferase 50 U/L (7-52); Albumin Globulin Ratio 1.3 (0.9-2); Albumin Level 5.1 gm/dl (3.4-5.0); Alkaline Phosphatase 70 U/L (34-104); Anion Gap 10 (3-11); Aspartate Aminotransferase 33 U/L (13-39); Bilirubin,Total 2.8 mg/dl (0.2-1.0); Blood Urea Nitrogen 26 mg/dl (6-23); Calcium 10.3 mg/dl (8.6-10.3); Carbon Dioxide 28 mmol/L (21-32); Chloride 100 mmol/L (98-107); Creatinine Clr Calc Pharmacy 92.4 ml/min; Est GFR (African American) 71.8 ml/min; Est GFR (Non-African American) 61.9 ml/min; Globulin 3.9 gm/dl (2.5-4.0); Glucose 141 mg/dl (70-99(Fasting)); Lipase 30 U/L (11-82); Potassium 4.1 mmol/L (3.5-5.1); Sodium 138 mmol/L (136-145)
--- NOTE | 2022-10-26 17:41 | CT Scan Report ---
CT SCAN OF THE ABDOMEN AND PELVIS WITHOUT IV CONTRAST CLINICAL HISTORY: Generalized abdominal pain. Vomiting. COMPARISON STUDY: Abdominal CT dated 08/14/2020. TECHNIQUE: CT scan of the abdomen and pelvis is performed from the lung bases to the proximal femora. Images are reviewed in the axial, sagittal, and coronal planes. IV contrast was not administered for this examination. Note that the examination is significantly suboptimal without oral and IV contrast . A dose lowering technique was utilized adhering to the principles of ALARA. CT DOSE: 1718.47 mGy.cm FINDINGS: Lung bases: The heart is normal in size and without pericardial effusion. There are scattered coronar y artery calcifications. Catheter granulomas are noted. There is elevation of the left hemidiaphragm with bibasilar scarring/atelectasis. No airspace consolidation or pleural effusion is identified. Liver: The unenhanced liver is enlarged, measuring 19 cm in length. The liver demonstrates diffusely diminished attenuation indicating severe steatosis.. There is no intrahepatic biliary ductal dilatati on. Gallbladder: Surgically absent noting clips in the gallbladder fossa. Spleen: Normal in size and attenuation. Pancreas: Mildly atrophic and grossly unremarkable. Adrenal glands: Unremarkable. Kidneys: The unenhanced kidneys are normal in size and without hydronephrosis. There are at least 4 n onobstructing right renal calculi which measure up to 5 mm. There are at least 5 nonobstructing left calculi which measure up to 6 mm. No ureteral stone is seen. There is no evidence of contour deformin g renal mass lesion. Abdominal vasculature: The abdominal aorta is normal in course and caliber noting scattered foci of a therosclerotic calcification. Bowel: The proximal small bowel loops are distended and fluid-filled, measuring up to 5 cm in diamete r. A transition point is suggested in the distal jejunum on axial image #212. The distal small bowel colon are decompressed, and the appearance is consistent with a high-grade small bowel obstruction. N o focally thick-walled bowel loops are seen. No pneumatosis intestinalis or portal venous gas is iden tified. The appendix is well-visualized and normal. Peritoneum: There is no intraperitoneal free air or abdominal ascites. There is evidence of previous ventral hernia repair. Lymphadenopathy: None. Pelvic viscera: The bladder, prostate, and seminal vesicles are normal as visualized. There is a smal l fat-containing right inguinal hernia. Skeletal structures: No lytic or blastic lesions are seen. IMPRESSION: 1. Small bowel obstruction, with a transition point suggested involving the distal jejunum. This is l ikely on the basis of adhesions. 2. No intraperitoneal free air is seen. No focally thick-walled bowel loops are identified and there is no pneumatosis intestinalis or portal venous gas. 3. Hepatomegaly and severe hepatic steatosis. 4. Bilateral nephrolithiasis. 5. Additional findings as above. ACT 112: Negative or not required by law. Electronically signed by: Rickey Guajardo M.D. 10/26/2022 5:40 PM
[2022-10-26 17:43] LABS: Troponin I High Sensitivity < 2.3 pg/ml (0-20)
--- NOTE | 2022-10-26 18:40 | History & Physical Report ---
Date of Service October 26, 2022 Assessment & Plan (1) SIRS (systemic inflammatory response syndrome): Plan: No evidence of infection or sepsis at this time. elevated WBC and tachycardia present on admission, improved with IVF. Lactate was checked and 1.4. Cont pema ntenance IVF and plan as outlined below. (2) Small bowel obstruction: Plan: NG tube placed in the ER wtih >1L bilious output. He has received 1L NSS and will continue maintenance IVF administration. Will check daily labs and correct any electrolyte derangements as needed. Cont IV tylenol for mild pain or fever, IV Toradol for severe pain (patient has severe GI symptoms with IV narcotics), and IV antiemetics as needed. General Surgery consulted. (3) GERD (gastroesophageal reflux disease): Plan: Hold PO PPI, Pepcid 20mg IV PRN heartburn symptoms. (4) Hepatic steatosis: Plan: chronic, stable. No elevation in LFTs. (5) Hyperbilirubinemia: Plan: chronic, takes milk thistle for >20 years. Uncertain if this may be c ontributing. He has a long history of asymptomatic hyperbilirubinemia in the outpatient record. Per records, appears to have a trend of indirect hyperbilirubinemia consistent with Gilbert's syndrome. No further workup needed. DVT prophylaxis-although he may possibly require a procedure, he has elevated inflammation with SIRS process, will start Lovenox now as he is at higher risk for DVT Full Code Dispo-to floor and home after tolerating solid foods, likely after the weekend. Selena Lezama DO [facility] [address] Hospitalist History of Present Illness Chief Complaint: abdominal pain Primary Care Provider: Denver Kramer DO 62 yo M presents with generalized abdominal pain, nausea and vomiting. His pain began yesterday and is generalized. He was treated wtih IVF, Dilaudid and Zofran in the ER. CT imaging revealed a small bowel obstruction wtih a transition point in the distal jejunum, likely on the basis of adhesions. He has a history of adhesions prompting ex lap in 2008. He then underwent a lap mis in 2011 and has had additional admissions for conservative management of SBO with NG tube placement. Reports his last meal was a bologna sandwich and doritos yesterday afternoon. He developed upper abdominal pain with bloating and had vomiting and diarrhea this morning. He denies any fevers, chills, respiratory symptoms or dysuria. No other symptoms that are concerning to the patient. Allergies Allergy/AdvReac Type Severity Reaction Status Date / Time morphine AdvReac Intermediate GI SYMPTOMS Verified 10/26/22 18:06 oxycodone AdvReac Intermediate NAUSEA Verified 10/26/22 18:06 hydromorphone [From Dilaudid] AdvReac Unknown Nausea Verified 10/26/22 18:57 Home Medications Medication Instructions Recorded Confirmed Type esomeprazole magnesium 20 mg 20 mg PO DAILYBB 08/14/20 10/26/22 History capsule,delayed release (Nexium) naproxen 500 mg tablet (Naprosyn) 500 mg PO BID PRN Back Pain 08/14/20 10/26/22 History aspirin 81 mg tablet,delayed 81 mg PO .Q3DAYS 10/26/22 10/26/22 History release milk thistle 500 mg capsule 500 mg PO DAILY 10/26/22 10/26/22 History multivitamin 1 tab PO DAILY 10/26/22 10/26/22 History Past Med/Surg History Medical History (Updated 10/26/22 @ 19:19 by Selena Lezama DO) Abdominal adhesions Caused SBO. Surgery required to repair. BPH with obstruction/lower urinary tract symptoms Dyslipidemia GERD (gastroesophageal reflux disease) Hepatic steatosis Obesity Partial small bowel obstruction Surgical History H/O exploratory laparotomy 08/25/2008 Hx laparoscopic cholecystectomy 10/2011 Family History Father Cancer Coronary heart disease Brother Diabetes Social History Smoking Status: Never smoker Hx Alcohol Use: No Hx Substance Use: No Preferred Language: Italian Communication Ability: Effective Outreach Associate Required: No Beliefs That Will Affect Care: Orthodoxy Orthodoxy Beliefs: Zoroastrian Current Living Situation: Spouse Feels Safe at Home: Yes Assistive Devices: Glasses Review of Systems Review of Systems: All systems were reviewed and negative except as indicated on HPI above. Physical Exam Physical Exam: CONSTITUTIONAL: WNWD, vitals as above, generally well-appearing, NAD EYES: normal conjunctivae, no scleral icterus ENT: external ear and nose normal, oropharynx clear, NG tube in place. NECK: trachea midline RESPIRATORY: clear to auscultation bilaterally, no crackles, rales or wheezes, normal respiratory effort CARDIOVASCULAR: regular rate and rhythm, S1 and 2 heard without murmurs, gallops or rubs, no JVD, no peripheral edema CHEST: inspection of chest was normal GASTROINTESTINAL: soft, TTP in upper abdomen with some bloating, slight distension in upper abdomen, +BS MUSCULOSKELETAL: strength 5/5 throughout, head is normocephalic and atraumatic SKIN: warm and dry NEUROLOGIC: CN 2-12 grossly intact, no sensory deficit, normal cognition, normal speech, no tremor PSYCHIATRIC: alert cooperative and oriented to person, place and time. Eut hymic mood, makes good eye contact, language grossly intact, recent and remote memory grossly intact. Results & Data Results & Data Vital Signs (Past 12 Hours) Vital Signs Temp Pulse Pulse Resp BP BP Pulse Ox 10/26/22 17:38 98 H 10/26/22 17:33 96 H 22 127/81 94 10/26/22 17:25 72 10 L 95 10/26/22 16:34 36.0 C L 111 H 18 136/90 96 O2 Del Method 10/26/22 17:38 10/26/22 17:33 Room Air 10/26/22 17:25 Room Air 10/26/22 16:34 Room Air Laboratory Results Short CBC 10/26/22 Range/Units 16:37 WBC 20.67 H (4.8-10.8) K/ul Hgb 19.4 H (14.0-18.0) g/dl Hct 55.9 H (42.0-52.0) % Plt Count 325 (130-400) K/uL BMP 10/26/22 16:37 Sodium 138 Potassium 4.1 Chloride 100 Carbon Dioxide 28 BUN 26 H Creatinine 1.24 Glucose 141 H Calcium 10.3 Liver Function 10/26/22 Range/Units 16:37 Total Bilirubin 2.8 H (0.2-1.0) mg/dl AST 33 (13-39) U/L ALT 50 (7-52) U/L Alkaline Phosphatase 70 (34-104) U/L Albumin 5.1 H (3.4-5.0) gm/dl Diagnostic Findings Abdomen/Pelvis CT 10/26/22 16:43 CT SCAN OF THE ABDOMEN AND PELVIS WITHOUT IV CONTRAST CLINICAL HISTORY: Generalized abdominal pain. Vomiting. COMPARISON STUDY: Abdominal CT dated 08/14/2020. TECHNIQUE: CT scan of the abdomen and pelvis is performed from the lung bases to the proximal femora. Images are reviewed in the axial, sagittal, and coronal planes. IV contrast was not administered for this examination. Note that the examination is significantly suboptimal without oral and IV contrast. A dose lowering technique was utilized adhering to the principles of ALARA. CT DOSE: 1718.47 mGy.cm FINDINGS: Lung bases: The heart is normal in size and without pericardial effusion. There are scattered coronary artery calcifications. Catheter granulomas are noted. There is elevation of the left hemidiaphragm with bibasilar scarring/atelectasis. No airspace consolidation or pleural effusion is identified. Liver: The unenhanced liver is enlarged, measuring 19 cm in length. The liver demonstrates diffusely diminished attenuation indicating severe steatosis.. There is no intrahepatic biliary ductal dilatation. Gallbladder: Surgically absent noting clips in the gallbladder fossa. Spleen: Normal in size and attenuation. Pancreas: Mildly atrophic and grossly unremarkable. Adrenal glands: Unremarkable. Kidneys: The unenhanced kidneys are normal in size and without hydronephrosis. There are at least 4 nonobstructing right renal calculi which measure up to 5 mm. There are at least 5 nonobstructing left calculi which measure up to 6 mm. No ureteral stone is seen. There is no evidence of contour deforming renal mass lesion. Abdominal vasculature: The abdominal aorta is normal in course and caliber noting scattered foci of atherosclerotic calcification. Bowel: The proximal small bowel loops are distended and fluid-filled, measuring up to 5 cm in diameter. A transition point is suggested in the distal jejunum on axial image #212. The distal small bowel colon are decompressed, and the appearance is consistent with a high-grade small bowel obstruction. No focally thick-walled bowel loops are seen. No pneumatosis intestinalis or portal venous gas is identified. The appendix is well-visualized and normal. Peritoneum: There is no intraperitoneal free air or abdominal ascites. There is evidence of previous ventral hernia repair. Lymphadenopathy: None. Pelvic viscera: The bladder, prostate, and seminal vesicles are normal as visualized. There is a small fat-containing right inguinal hernia. Skeletal structures: No lytic or blastic lesions are seen. IMPRESSION: 1. Small bowel obstruction, with a transition point suggested involving the distal jejunum. This is likely on the basis of adhesions. 2. No intraperitoneal free air is seen. No focally thick-walled bowel loops are identified and there is no pneumatosis intestinalis or portal venous gas. 3. Hepatomegaly and severe hepatic steatosis. 4. Bilateral nephrolithiasis. 5. Additional findings as above. ACT 112: Negative or not required by law. Electronically signed by: Rickey Guajardo M.D. 10/26/2022 5:40 PM Medications Administered Current Inpatient Medications Hydromorphone HCl (Hydromorphone Inj 0.5 Mg/0.5 Ml Syr) 0.5 mg IV Q15M PRN PRN Reason: Pain Stop: 11/09/22 16:46 Last Admin: 10/26/22 17:04 Dose: 0.5 mg Code Status & VTE Plan VTE Prophylaxis Plan VTE Prophylaxis will be ordered: Yes
[2022-10-26] MEDS: ACETAMINOPHEN 1,000 MG/100 ML VIAL IV PRN (20:10)
[2022-10-26] MEDS ORDERED: ONDANSETRON INJ 2 MG/ML 2 ML VIAL IV PRN (20:39)
[2022-10-26] MEDS: LACTATED RINGER'S 1,000 ML IV SCH (20:50)
[2022-10-26 22:07] LABS: Bilirubin Direct 0.4 mg/dl (0-0.2); Bilirubin,Total 2.6 mg/dl (0.2-1.0)
[2022-10-26] MEDS: FAMOTIDINE 20 MG in SYRINGE 3 ML IV PRN (22:43)
[2022-10-26] MEDS: KETOROLAC TROMETHAMINE 15 MG/ML VIAL IV PRN (23:37)
[2022-10-27] MEDS: LACTATED RINGER'S 1,000 ML IV SCH ×3 (04:46→20:41)
[2022-10-27] MEDS: KETOROLAC TROMETHAMINE 15 MG/ML VIAL IV PRN ×3 (06:01→23:34)
[2022-10-27 06:40] LABS: Magnesium 2.1 mg/dl (1.7-2.4); Phosphorus 3.2 mg/dl (2.5-4.9)
[2022-10-27] MEDS: FAMOTIDINE 20 MG in SYRINGE 3 ML IV PRN ×2 (10:43→23:34)
[2022-10-27] MEDS: ACETAMINOPHEN 1,000 MG/100 ML VIAL IV PRN ×2 (10:51→20:14)
--- NOTE | 2022-10-27 12:34 | Surgery Consultation ---
Date of Consultation October 27, 2022 Assessment & Plan (1) SBO (small bowel obstruction): Likely secondary to adhesions. Discussed initial trial of ng decompression, bowel rest, IVF hydration. If symptoms improved, can be managed nonoperatively. If symptoms persist or worsen, discussed possibility of repeat GEOFF. At this time, there is no indication for surgical intervention. Appears hemoconcentrated with elevated H/H and WBC ct. Will monitor. History of Present Illness Reason for Consultation: small bowel obstruction Requesting Physician: Selena Lezama MD Attending Physician: Abdoulaye Kimbrough MD History of Present Illness 62 yr old man admitted with small bowel obstruction. His symptoms began after eating a bologna sandwich and doritoes. He developed cramping centralized abdominal pain, 9/10 in intensity, no radiation, associated with nausea. No relieving factors. Began with bilious vomiting Saturday morning which persisted. Also developed diarrhea, still passing flatus. Currently, NG is in place. Pain is down to 4/10. Last small bowel obstruction was 3 yrs ago and resolved nonoperatively. 14 yrs ago, developed a SBO which required GEOFF by Dr. Hodges. This was his first episode and he did not have any prior surgical history so source of adhesion was unknown. Allergies Allergy/AdvReac Type Severity Reaction Status Date / Time morphine AdvReac Intermediate GI SYMPTOMS Verified 10/26/22 18:06 oxycodone AdvReac Intermediate NAUSEA Verified 10/26/22 18:06 hydromorphone [From Dilaudid] AdvReac Unknown Nausea Verified 10/26/22 18:57 Home Medications Medication Instructions Recorded Confirmed Type esomeprazole magnesium 20 mg 20 mg PO DAILYBB 08/14/20 10/26/22 History capsule,delayed release (Nexium) naproxen 500 mg tablet (Naprosyn) 500 mg PO BID PRN Back Pain 08/14/20 10/26/22 History aspirin 81 mg tablet,delayed 81 mg PO .Q3DAYS 10/26/22 10/26/22 History release milk thistle 500 mg capsule 500 mg PO DAILY 10/26/22 10/26/22 History multivitamin 1 tab PO DAILY 10/26/22 10/26/22 History Patient History Medical History Abdominal adhesions Caused SBO. Surgery required to repair. BPH with obstruction/lower urinary tract symptoms Dyslipidemia GERD (gastroesophageal reflux disease) Hepatic steatosis Obesity Partial small bowel obstruction Surgical History H/O exploratory laparotomy 08/25/2008 Hx laparoscopic cholecystectomy 10/2011 Family History Father Cancer Coronary heart disease Brother Diabetes Social History Smoking Status: Never smoker Hx Alcohol Use: Yes Alcohol type: beer Hx Substance Use: No Preferred Language: Irish Communication Ability: Effective Field Marketing Representative Required: No Beliefs That Will Affect Care: None Current Living Situation: Spouse Other Information That Helps Us Care for You: No Feels Safe at Home: Yes Safety Concerns: Feels Safe At This Time Assistive Devices: Glasses Review of Systems Review of Systems: All systems reviewed & are unremarkable except as noted in HPI & below Physical Exam Constitutional: WD/WN, vitals as above Eyes: PERRL, conjunctivae normal, anicteric sclerae Neck: normal visual inspection and trachea midline Respiratory: normal respiratory effort, lungs clear to auscultation Cardiovascular: RRR, no murmur, no edema Gastrointestinal (Abdomen): Inspection/Auscultation: abdomen normal to inspection, + abdomen distended (mild) and + hypoactive bowel sounds Percussion/Palpation: + abdomen tender (mild central) and abdomen soft; no guarding Musculoskeletal: no cyanosis or clubbing, extremities motor strength 5/5 Neurologic: no focal motor deficits Psychiatric: A+Ox3, euthymic affect Results & Data Vital Signs (Past 12 Hours) Vital Signs Temp Pulse Resp BP Pulse Ox O2 Del Method 10/27/22 07:54 36.6 C 97 H 18 139/79 94 Room Air Laboratory Results 10/27/22 10/26/22 10/26/22 Range/Units 05:23 21:24 19:20 WBC (4.8-10.8) K/ul RBC (4.70-6.10) M/uL Hgb (14.0-18.0) g/dl Hct (42.0-52.0) % MCV (80.0-100.0) fL MCH (25.0-34.0) pg MCHC (32.0-36.0) g/dL RDW Std Deviation (36.4-46.3) fL RDW Coeff of Jourdan (11.5-14.5) % Plt Count (130-400) K/uL MPV (9.4-12.4) fL Immature Gran % (Auto) % Neut % (Auto) % Lymph % (Auto) % Barber % (Auto) % Eos % (Auto) % Baso % (Auto) % Neut # (Auto) (1.40-6.50) K/uL Lymph # (Auto) (1.2-3.4) K/uL Barber # (Auto) (0.11-0.59) K/uL Eos # (Auto) (0-0.50) K/uL Baso # (Auto) (0-0.2) K/uL Immature Gran # (Auto) (0.01-0.20) K/uL Sodium (136-145) mmol/L Potassium (3.5-5.1) mmol/L Chloride (98-107) mmol/L Carbon Dioxide (21-32) mmol/L Anion Gap (3-11) BUN (6-23) mg/dl Creatinine (0.6-1.4) mg/dl Est Cr Clr Drug Dosing ml/min Est GFR ( Amer) ml/min Est GFR (Non-Af Amer) ml/min BUN/Creatinine Ratio (10-20) Glucose (70-99(Fasting)) mg/dl Lactate 1.4 (0.4-2.0) mmol/L Calcium (8.6-10.3) mg/dl Phosphorus 3.2 (2.5-4.9) mg/dl Magnesium 2.1 (1.7-2.4) mg/dl Total Bilirubin 2.6 H (0.2-1.0) mg/dl Direct Bilirubin 0.4 H (0-0.2) mg/dl AST (13-39) U/L ALT (7-52) U/L Alkaline Phosphatase (34-104) U/L Troponin I High Sens (0-20) pg/ml Total Protein (6.0-8.3) gm/dl Albumin (3.4-5.0) gm/dl Globulin (2.5-4.0) gm/dl Albumin/Globulin Ratio (0.9-2) Lipase (11-82) U/L SARS-CoV-2, RNA, NAAT (NEGATIVE) 10/26/22 10/26/22 10/26/22 Range/Units 18:55 16:37 16:37 WBC 20.67 H (4.8-10.8) K/ul RBC 6.35 H (4.70-6.10) M/uL Hgb 19.4 H (14.0-18.0) g/dl Hct 55.9 H (42.0-52.0) % MCV 88.0 (80.0-100.0) fL MCH 30.6 (25.0-34.0) pg MCHC 34.7 (32.0-36.0) g/dL RDW Std Deviation 41.1 (36.4-46.3) fL RDW Coeff of Jourdan 12.9 (11.5-14.5) % Plt Count 325 (130-400) K/uL MPV 11.0 (9.4-12.4) fL Immature Gran % (Auto) 0.4 % Neut % (Auto) 88.1 % Lymph % (Auto) 5.8 % Barber % (Auto) 5.4 % Eos % (Auto) 0.1 % Baso % (Auto) 0.2 % Neut # (Auto) 18.21 H (1.40-6.50) K/uL Lymph # (Auto) 1.20 (1.2-3.4) K/uL Barber # (Auto) 1.11 H (0.11-0.59) K/uL Eos # (Auto) 0.02 (0-0.50) K/uL Baso # (Auto) 0.04 (0-0.2) K/uL Immature Gran # (Auto) 0.09 (0.01-0.20) K/uL Sodium 138 (136-145) mmol/L Potassium 4.1 (3.5-5.1) mmol/L Chloride 100 (98-107) mmol/L Carbon Dioxide 28 (21-32) mmol/L Anion Gap 10 (3-11) BUN 26 H (6-23) mg/dl Creatinine 1.24 (0.6-1.4) mg/dl Est Cr Clr Drug Dosing 92.4 ml/min Est GFR ( Amer) 71.8 ml/min Est GFR (Non-Af Amer) 61.9 ml/min BUN/Creatinine Ratio 21.0 H (10-20) Glucose 141 H (70-99(Fasting)) mg/dl Lactate (0.4-2.0) mmol/L Calcium 10.3 (8.6-10.3) mg/dl Phosphorus (2.5-4.9) mg/dl Magnesium (1.7-2.4) mg/dl Total Bilirubin 2.8 H (0.2-1.0) mg/dl Direct Bilirubin (0-0.2) mg/dl AST 33 (13-39) U/L ALT 50 (7-52) U/L Alkaline Phosphatase 70 (34-104) U/L Troponin I High Sens < 2.3 (0-20) pg/ml Total Protein 9.0 H (6.0-8.3) gm/dl Albumin 5.1 H (3.4-5.0) gm/dl Globulin 3.9 (2.5-4.0) gm/dl Albumin/Globulin Ratio 1.3 (0.9-2) Lipase 30 (11-82) U/L SARS-CoV-2, RNA, NAAT NEGATIVE (NEGATIVE) Diagnostic Findings CT SCAN OF THE ABDOMEN AND PELVIS WITHOUT IV CONTRAST CLINICAL HISTORY: Generalized abdominal pain. Vomiting. COMPARISON STUDY: Abdominal CT dated 08/14/2020. TECHNIQUE: CT scan of the abdomen and pelvis is performed from the lung bases to the proximal femora. Images are reviewed in the axial, sagittal, and coronal planes. IV contrast was not administered for this examination. Note that the examination is significantly suboptimal without oral and IV contrast. A dose lowering technique was utilized adhering to the principles of ALARA. CT DOSE: 1718.47 mGy.cm FINDINGS: Lung bases: The heart is normal in size and without pericardial effusion. There are scattered coronary artery calcifications. Catheter granulomas are noted. There is elevation of the left hemidiaphragm with bibasilar scarring/at electasis. No airspace consolidation or pleural effusion is identified. Liver: The unenhanced liver is enlarged, measuring 19 cm in length. The liver demonstrates diffusely diminished attenuation indicating severe steatosis.. There is no intrahepatic biliary ductal dilatation. Gallbladder: Surgically absent noting clips in the gallbladder fossa. Spleen: Normal in size and attenuation. Pancreas: Mildly atrophic and grossly unremarkable. Adrenal glands: Unremarkable. Kidneys: The unenhanced kidneys are normal in size and without hydronephrosis. There are at least 4 nonobstructing right renal calculi which measure up to 5 mm. There are at least 5 nonobstructing left calculi which measure up to 6 mm. No ureteral stone is seen. There is no evidence of contour deforming renal mass lesion. Abdominal vasculature: The abdominal aorta is normal in course and caliber noting scattered foci of atherosclerotic calcification. Bowel: The proximal small bowel loops are distended and fluid-filled, measuring up to 5 cm in diameter. A transition point is suggested in the distal jejunum on axial image #212. The distal small bowel colon are decompressed, and the appearance is consistent with a high-grade small bowel obstruction. No focally thick-walled bowel loops are seen. No pneumatosis intestinalis or portal venous gas is identified. The appendix is well-visualized and normal. Peritoneum: There is no intraperitoneal free air or abdominal ascites. There is evidence of previous ventral hernia repair. Lymphadenopathy: None. Pelvic viscera: The bladder, prostate, and seminal vesicles are normal as visualized. There is a small fat-containing right inguinal hernia. Skeletal structures: No lytic or blastic lesions are seen. IMPRESSION: 1. Small bowel obstruction, with a transition point suggested involving the distal jejunum. This is likely on the basis of adhesions. 2. No intraperitoneal free air is seen. No focally thick-walled bowel loops are identified and there is no pneumatosis intestinalis or portal venous gas. 3. Hepatomegaly and severe hepatic steatosis. 4. Bilateral nephrolithiasis. 5. Additional findings as above. ACT 112: Negative or not required by law.
[2022-10-27 15:53] LABS: Appearance Urine Cloudy (Clear); Bacteria Urine Automated Negative (Negative); Bilirubin Urine 1+ (Negative); Blood Urine Negative (Negative); Color Urine Orange; Epithelial Cell Urine Auto 20-30 /lpf (0-5); Glucose Urine UA Negative (Negative); Ketones Urine 1+ (Negative); Leukocyte Esterase Urine Trace (Negative); Nitrite Urine Negative (Negative); Protein Urine Trace (Negative); Specific Gravity Urine 1.038 (1.000-1.030); Urobilinogen Urine Negative (Negative); pH Urine 5.5 (4.5-7.5)
--- NOTE | 2022-10-27 16:10 | Hospitalist Progress Note ---
Date of Service October 27, 2022 Assessment & Plan (1) SIRS (systemic inflammatory response syndrome): Plan: SIRS Hemoconcentration Abnormal urinalysis Lactate levels 1.4 Continue IV fluids Urine culture pending Will consider empiric antibiotics if needed (2) Small bowel obstruction: Plan: Small Bowel Obstruction --CT ABD:Small bowel obstruction, with a transition point suggested involving the distal jejunum. This is likely on the basis of adhesions. No intraperitoneal free air is seen. No focally thick-walled bowel loops are identified and there is no pneumatosis intestinalis or portal venous gas. Hepatomegaly and severe hepatic steatosis. Bilateral nephrolithiasis. -- Continue NG tube, IV fluids, bowel rest Appreciate surgery input Minimize IV narcotics as able (3) GERD (gastroesophageal reflux disease): Plan: Continue Pepcid for now (4) Hepatic steatosis: Plan: chronic, stable. (5) Hyperbilirubinemia: Plan: chronic, takes milk thistle for >20 years. H/O Asymptomatic hyperbilirubinemia per records ? Gilbert's syndrome Further workup as outpatient DVT Px: Lovenox SQ SCDs Code Status Full Code Admission and Anticipated Discharge Date Admission Date: October 26, 2022 Subjective Patient is seen and examined at bedside States having abdominal cramps intermittently Denies any significant abdominal pain + Flatus, no bowel movement today Denies any chest pain, dyspnea, dizziness, nausea, vomiting Review of Systems Review of Systems: All systems reviewed & are unremarkable except as noted in Subjective Physical Exam Physical Exam: Physical Exam: Vitals signs as noted above General Appearance:Moderately built and nourished, no apparent distress Head: normocephalic, Atraumatic,+NG tube Eyes: normal inspection, EOMI Neck: supple, Trachea midline Respiratory/Chest: Normal breath sounds, CTA, No accessory muscle use Cardiovascular: S1, S2, No murmur Abdomen/GI:Soft, Non tender, Bowel sounds abscent Extremities/Musculoskeletal:normal inspection, Trace edema Neurologic/Psych:AAOX3, grossly no focal neurological deficits Skin: normal color, warm Results & Data Results & Data Vital Signs (Past 12 Hours) Vital Signs Temp Pulse Resp BP Pulse Ox O2 Del Method 10/27/22 07:54 36.6 C 97 H 18 139/79 94 Room Air Laboratory Results Short CBC 10/26/22 Range/Units 16:37 WBC 20.67 H (4.8-10.8) K/ul Hgb 19.4 H (14.0-18.0) g/dl Hct 55.9 H (42.0-52.0) % Plt Count 325 (130-400) K/uL BMP 10/26/22 16:37 Sodium 138 Potassium 4.1 Chloride 100 Carbon Dioxide 28 BUN 26 H Creatinine 1.24 Glucose 141 H Calcium 10.3 Liver Function 10/26/22 10/26/22 Range/Units 16:37 21:24 Total Bilirubin 2.8 H 2.6 H (0.2-1.0) mg/dl Direct Bilirubin 0.4 H (0-0.2) mg/dl AST 33 (13-39) U/L ALT 50 (7-52) U/L Alkaline Phosphatase 70 (34-104) U/L Albumin 5.1 H (3.4-5.0) gm/dl Urine 10/27/22 Range/Units 15:20 Urine Color [place] Urine Appearance Cloudy A (Clear) Urine pH 5.5 (4.5-7.5) Ur Specific [place] 1.038 H (1.000-1.030) Urine Protein Trace H (Negative) Urine Glucose (UA) Negative (Negative)
[2022-10-28] MEDS: LACTATED RINGER'S 1,000 ML IV SCH ×2 (05:01→15:21)
[2022-10-28 06:44] LABS: Hematocrit (blood only) 44.8 % (42.0-52.0); Hemoglobin 15.2 g/dl (14.0-18.0); Mean Corpuscular Hemoglobin 30.6 pg (25.0-34.0); Mean Corpuscular Hgb Conc 33.9 g/dL (32.0-36.0); Mean Corpuscular Volume 90.1 fL (80.0-100.0); Mean Platelet Volume 10.8 fL (9.4-12.4); Platelet Count 218 K/uL (130-400); RDW Coefficient of Variation 13.1 % (11.5-14.5); RDW Standard Deviation 42.9 fL (36.4-46.3); Red Blood Count 4.97 M/uL (4.70-6.10); White Blood Count 8.56 K/ul (4.8-10.8)
[2022-10-28 06:56] LABS: BUN Creatinine Ratio 27.4 (10-20); Calcium 8.6 mg/dl (8.6-10.3); Creatinine Clr Calc Pharmacy 101.4 ml/min; Est GFR (African American) 80.3 ml/min; Est GFR (Non-African American) 69.3 ml/min; Potassium 3.9 mmol/L (3.5-5.1)
[2022-10-28 07:11] LABS: Estimated Average Glucose 105 mg/dl; Hemoglobin A1C 5.3 % (4.5-5.6)
[2022-10-28] MEDS: ENOXAPARIN INJ 40 MG/0.4 ML SYR SQ SCH (07:47)
--- NOTE | 2022-10-28 10:21 | Surgery Progress Note ---
Date of Service October 28, 2022 Assessment & Plan (1) SBO (small bowel obstruction): Plan: Improving. Would continue clears for lunch, full liquids for dinner and if tolerates, he is anxious to try and go home tomorrow. Understands he will still need to slowly advance diet at home. Total time spent on reviewing chart, seeing pt, and writing note is 21 minutes. Admission and Anticipated Discharge Date Admission Date: October 26, 2022 Subjective feels better. Passed a good amount of flatus. No bowel movement. Tolerated ng tube clamping with no symptoms and low residual. NG removed this am and has tolerated clears. no nausea. Physical Exam Constitutional: WD/WN, vitals as above Respiratory: normal respiratory effort, lungs clear to auscultation Cardiovascular: RRR, no murmur, no edema Gastrointestinal (Abdomen): normal bowel sounds, soft, nontender, no hepatosplenomegaly less distended, no guarding Neurologic: awake; no focal motor deficits Psychiatric: A+Ox3, euthymic affect Results & Data Vital Signs (Past 12 Hours) Vital Signs Temp Pulse Resp BP Pulse Ox O2 Del Method 10/28/22 07:24 36.8 C 92 H 16 134/73 94 Room Air 10/27/22 22:33 36.7 C 93 H 18 150/87 H 94 Room Air Laboratory Results Abnormal lab results 10/27/22 10/28/22 Range/Units 15:20 06:02 BUN 31 H (6-23) mg/dl BUN/Creatinine Ratio 27.4 H (10-20) Urine Appearance Cloudy A (Clear) Ur Specific [place] 1.038 H (1.000-1.030) Urine Protein Trace H (Negative) Urine Ketones 1+ H (Negative) Urine Bilirubin 1+ H (Negative) Ur Leukocyte Esterase Trace H (Negative) Urine WBC (Auto) 5-10 H (0-5) /hpf Urine RBC (Auto) 5-10 H (0-4) /hpf U Hyaline Cast (Auto) 5-10 H (0-5) /lpf U Epithel Cells (Auto) 20-30 H (0-5) /lpf
--- NOTE | 2022-10-28 16:35 | Hospitalist Progress Note ---
Date of Service October 28, 2022 Assessment & Plan (1) SIRS (systemic inflammatory response syndrome): Plan: SIRS Hemoconcentration Abnormal urinalysis Lactate levels 1.4 Continue IV fluids Urine culture pending Will consider empiric antibiotics if needed Leukocytosis resolved (2) Small bowel obstruction: Plan: Small Bowel Obstruction --CT ABD:Small bowel obstruction, with a transition point suggested involving the distal jejunum. This is likely on the basis of adhesions. No intraperitoneal free air is seen. No focally thick-walled bowel loops are identified and there is no pneumatosis intestinalis or portal venous gas. Hepatomegaly and severe hepatic steatosis. Bilateral nephrolithiasis. -- NG tube discontinued Continue IV fluids Appreciate surgery input Minimize IV narcotics as able Started on liquid diet (3) GERD (gastroesophageal reflux disease): Plan: Continue Pepcid for now (4) Hepatic steatosis: Plan: chronic, stable. (5) Hyperbilirubinemia: Plan: chronic, takes milk thistle for >20 years. H/O Asymptomatic hyperbilirubinemia per records ? Gilbert's syndrome Further workup as outpatient DVT Px: Lovenox SQ SCDs Code Status Full Code Admission and Anticipated Discharge Date Admission Date: October 26, 2022 Subjective Patient is seen and examined at bedside Abdominal pain resolved + Flatus but no bowel movement Started on clear liquid diet NG tube discontinued Denies any chest pain, dyspnea, dizziness, nausea, vomiting Family at bedside Review of Systems Review of Systems: All systems reviewed & are unremarkable except as noted in Subjective Physical Exam Physical Exam: Physical Exam: Vitals signs as noted above General Appearance:Moderately built and nourished, no apparent distress Head: normocephalic, Atraumatic,+NG tube Eyes: normal inspection, EOMI Neck: supple, Trachea midline Respiratory/Chest: Normal breath sounds, CTA, No accessory muscle use Cardiovascular: S1, S2, No murmur Abdomen/GI:Soft, Non tender, Bowel sounds abscent Extremities/Musculoskeletal:normal inspection, Trace edema Neurologic/Psych:AAOX3, grossly no focal neurological deficits Skin: normal color, warm Results & Data Results & Data Vital Signs (Past 12 Hours) Vital Signs Temp Pulse Resp BP Pulse Ox O2 Del Method 10/28/22 15:36 36.9 C 90 16 124/77 95 Room Air 10/28/22 07:24 36.8 C 92 H 16 134/73 94 Room Air Laboratory Results Short CBC 10/28/22 Range/Units 06:02 WBC 8.56 (4.8-10.8) K/ul Hgb 15.2 D (14.0-18.0) g/dl Hct 44.8 (42.0-52.0) % Plt Count 218 (130-400) K/uL BMP 10/28/22 06:02 Sodium 141 Potassium 3.9 Chloride 106 Carbon Dioxide 31 BUN 31 H Creatinine 1.13 Glucose 94 Calcium 8.6
[2022-10-29] MEDS: LACTATED RINGER'S 1,000 ML IV SCH ×2 (04:08→04:11)
[2022-10-29 07:18] LABS: Hematocrit (blood only) 42.1 % (42.0-52.0); Mean Corpuscular Hemoglobin 31.6 pg (25.0-34.0); Mean Corpuscular Hgb Conc 35.6 g/dL (32.0-36.0); Mean Corpuscular Volume 88.8 fL (80.0-100.0); Mean Platelet Volume 11.2 fL (9.4-12.4); Platelet Count 244 K/uL (130-400); RDW Coefficient of Variation 12.6 % (11.5-14.5); RDW Standard Deviation 41.3 fL (36.4-46.3); Red Blood Count 4.74 M/uL (4.70-6.10); White Blood Count 6.21 K/ul (4.8-10.8)
[2022-10-29 07:31] LABS: Albumin Level 3.9 gm/dl (3.4-5.0); BUN Creatinine Ratio 17.3 (10-20); Bilirubin Direct 0.5 mg/dl (0-0.2); Bilirubin,Total 2.7 mg/dl (0.2-1.0); Calcium 8.6 mg/dl (8.6-10.3); Est GFR (African American) 95.4 ml/min; Est GFR (Non-African American) 82.3 ml/min; Potassium 3.7 mmol/L (3.5-5.1); Total Protein 6.7 gm/dl (6.0-8.3)
[2022-10-29] MEDS: ENOXAPARIN INJ 40 MG/0.4 ML SYR SQ SCH (07:52)
--- NOTE | 2022-10-29 12:58 | Surgery Progress Note ---
Date of Service October 29, 2022 Assessment & Plan (1) SBO (small bowel obstruction): Plan: Resolving + bowel function no abdominal pain tolerating advanced diet Plan: okay from surgical standpoint for discharge today recommend low fiber diet for 1-2 weeks surgery follow-up prn discussed with DR. Kimbrough. Discussed with Dr. Little who agrees with above. Admission and Anticipated Discharge Date Admission Date: October 26, 2022 Supervising Physician Co-Signing Physician Notes I have seen and examined the patient and agree with the above assessment and plan. May be discharged to home. Follow-up as needed. Call with any questions or concerns. Subjective feeling better no abdominal pain, n,v tolerated low fiber diet this am passing gas and had normal formed bowel movement this morning ready to go home Physical Exam Constitutional: WD/WN, vitals as above no acute distress and not ill appearing Gastrointestinal (Abdomen): Inspection/Auscultation: abdomen normal to inspection; abdomen not distended and + abnormal bowel sounds Percussion/Palpation: abdomen soft; abdomen nontender, no guarding, abdomen not rigid and abdomen not firm Skin: no rashes, warm and dry Psychiatric: A+Ox3, euthymic affect Results & Data Vital Signs (Past 12 Hours) Vital Signs Temp Pulse Resp BP Pulse Ox O2 Del Method 10/29/22 07:16 36.4 C L 77 16 128/71 94 Room Air Laboratory Results 10/29/22 10/29/22 Range/Units 06:24 06:24 WBC 6.21 (4.8-10.8) K/ul RBC 4.74 (4.70-6.10) M/uL Hgb 15.0 (14.0-18.0) g/dl Hct 42.1 (42.0-52.0) % MCV 88.8 (80.0-100.0) fL MCH 31.6 (25.0-34.0) pg MCHC 35.6 (32.0-36.0) g/dL RDW Std Deviation 41.3 (36.4-46.3) fL RDW Coeff of Jourdan 12.6 (11.5-14.5) % Plt Count 244 (130-400) K/uL MPV 11.2 (9.4-12.4) fL Sodium 139 (136-145) mmol/L Potassium 3.7 (3.5-5.1) mmol/L Chloride 104 (98-107) mmol/L Carbon Dioxide 29 (21-32) mmol/L Anion Gap 6 (3-11) BUN 17 (6-23) mg/dl Creatinine 0.98 (0.6-1.4) mg/dl Est Cr Clr Drug Dosing 117.0 ml/min Est GFR ( Amer) 95.4 ml/min Est GFR (Non-Af Amer) 82.3 ml/min BUN/Creatinine Ratio 17.3 (10-20) Glucose 92 (70-99(Fasting)) mg/dl Calcium 8.6 (8.6-10.3) mg/dl Total Bilirubin 2.7 H (0.2-1.0) mg/dl Direct Bilirubin 0.5 H (0-0.2) mg/dl AST 28 (13-39) U/L ALT 34 (7-52) U/L Alkaline Phosphatase 51 (34-104) U/L Total Protein 6.7 (6.0-8.3) gm/dl Albumin 3.9 (3.4-5.0) gm/dl
--- NOTE | 2022-10-29 12:59 | Hospitalist Progress Note ---
Date of Service October 29, 2022 Assessment & Plan (1) SIRS (systemic inflammatory response syndrome): Plan: SIRS Hemoconcentration Abnormal urinalysis Lactate levels 1.4 Received IV fluids Urine culture: Preliminary no growth Will consider empiric antibiotics if needed Leukocytosis resolved (2) Small bowel obstruction: Plan: Small Bowel Obstruction --CT ABD:Small bowel obstruction, with a transition point suggested involving the distal jejunum. This is likely on the basis of adhesions. No intraperitoneal free air is seen. No focally thick-walled bowel loops are identified and there is no pneumatosis intestinalis or portal venous gas. Hepatomegaly and severe hepatic steatosis. Bilateral nephrolithiasis. -- NG tube discontinued Received IV fluids Appreciate surgery input Minimize IV narcotics as able Tolerated Low fiber diet (3) GERD (gastroesophageal reflux disease): Plan: Continue Pepcid (4) Hepatic steatosis: Plan: chronic, stable. (5) Hyperbilirubinemia: Plan: chronic, takes milk thistle for >20 years. H/O Asymptomatic hyperbilirubinemia per records ? Gilbert's syndrome Further workup as outpatient DVT Px: Lovenox SQ SCDs Code Status Full Code Admission and Anticipated Discharge Date Admission Date: October 26, 2022 Subjective Patient is seen and examined at bedside Doing well today Had bowel movement Denies any nausea, vomiting, abdominal pain, chest pain, dyspnea Discussed with surgery today Tolerating diet Plan to be discharged home today Review of Systems Review of Systems: All systems reviewed & are unremarkable except as noted in Subjective Physical Exam Physical Exam: Physical Exam: Vitals signs as noted above General Appearance:Moderately built and nourished, no apparent distress Head: normocephalic, Atraumatic,+NG tube Eyes: normal inspection, EOMI Neck: supple, Trachea midline Respiratory/Chest: Normal breath sounds, CTA, No accessory muscle use Cardiovascular: S1, S2, No murmur Abdomen/GI:Soft, Non tender, Bowel sounds present Extremities/Musculoskeletal:normal inspection, Trace edema Neurologic/Psych:AAOX3, grossly no focal neurological deficits Skin: normal color, warm Results & Data Results & Data Vital Signs (Past 12 Hours) Vital Signs Temp Pulse Resp BP Pulse Ox O2 Del Method 10/29/22 07:16 36.4 C L 77 16 128/71 94 Room Air Laboratory Results Short CBC 10/29/22 Range/Units 06:24 WBC 6.21 (4.8-10.8) K/ul Hgb 15.0 (14.0-18.0) g/dl Hct 42.1 (42.0-52.0) % Plt Count 244 (130-400) K/uL BMP 10/29/22 06:24 Sodium 139 Potassium 3.7 Chloride 104 Carbon Dioxide 29 BUN 17 Creatinine 0.98 Glucose 92 Calcium 8.6 Liver Function 10/29/22 Range/Units 06:24 Total Bilirubin 2.7 H (0.2-1.0) mg/dl Direct Bilirubin 0.5 H (0-0.2) mg/dl AST 28 (13-39) U/L ALT 34 (7-52) U/L Alkaline Phosphatase 51 (34-104) U/L Albumin 3.9 (3.4-5.0) gm/dl
--- NOTE | 2022-10-29 13:11 | Discharge Summary ---
Date of Service October 29, 2022 Admission HPI Per Admitting Provider 62 yo M presents with generalized abdominal pain, nausea and vomiting. His pain began yesterday and is generalized. He was treated wtih IVF, Dilaudid and Zofran in the ER. CT imaging revealed a small bowel obstruction wtih a transition point in the distal jejunum, likely on the basis of adhesions. He has a history of adhesions prompting ex lap in 2008. He then underwent a lap mis in 2011 and has had additional admissions for conservative management of SBO with NG tube placement. Reports his last meal was a bologna sandwich and doritos yesterday afternoon. He developed upper abdominal pain with bloating and had vomiting and diarrhea this morning. He denies any fevers, chills, respiratory symptoms or dysuria. No other symptoms that are concerning to the patient. Admission Exam Per Admitting Provider CONSTITUTIONAL: WNWD, vitals as above, generally well-appearing, NAD EYES: normal conjunctivae, no scleral icterus ENT: external ear and nose normal, oropharynx clear, NG tube in place. NECK: trachea midline RESPIRATORY: clear to auscultation bilaterally, no crackles, rales or wheezes, normal respiratory effort CARDIOVASCULAR: regular rate and rhythm, S1 and 2 heard without murmurs, gallops or rubs, no JVD, no peripheral edema CHEST: inspection of chest was normal GASTROINTESTINAL: soft, TTP in upper abdomen with some bloating, slight distension in upper abdomen, +BS MUSCULOSKELETAL: strength 5/5 throughout, head is normocephalic and atraumatic SKIN: warm and dry NEUROLOGIC: CN 2-12 grossly intact, no sensory deficit, normal cognition, normal speech, no tremor PSYCHIATRIC: alert cooperative and oriented to person, place and time. Euthymic mood, makes good eye contact, language grossly intact, recent and remote memory grossly intact. Principal Diagnosis Small bowel obstruction Suspected urinary tract infection Discharge Data Allergies Allergy/AdvReac Type Severity Reaction Status Date / Time morphine AdvReac Intermediate GI SYMPTOMS Verified 10/26/22 18:06 oxycodone AdvReac Intermediate NAUSEA Verified 10/26/22 18:06 hydromorphone [From Dilaudid] AdvReac Unknown Nausea Verified 10/26/22 18:57 Consultations 10/26/22 17:56 ED Decision to Admit Stat 10/26/22 19:21 Consult General Surgery Routine Procedures Performed Laboratory Results WBC 6.21 K/ul (4.8-10.8) 10/29/22 06:24 RBC 4.74 M/uL (4.70-6.10) 10/29/22 06:24 Hgb 15.0 g/dl (14.0-18.0) 10/29/22 06:24 Hct 42.1 % (42.0-52.0) 10/29/22 06:24 MCV 88.8 fL (80.0-100.0) 10/29/22 06:24 MCH 31.6 pg (25.0-34.0) 10/29/22 06:24 MCHC 35.6 g/dL (32.0-36.0) 10/29/22 06:24 RDW Std Deviation 41.3 fL (36.4-46.3) 10/29/22 06:24 RDW Coeff of Jourdan 12.6 % (11.5-14.5) 10/29/22 06:24 Plt Count 244 K/uL (130-400) 10/29/22 06:24 MPV 11.2 fL (9.4-12.4) 10/29/22 06:24 Immature Gran % (Auto) 0.4 % 10/26/22 16:37 Neut % (Auto) 88.1 % 10/26/22 16:37 Lymph % (Auto) 5.8 % 10/26/22 16:37 [place] % (Auto) 5.4 % 10/26/22 16:37 Eos % (Auto) 0.1 % 10/26/22 16:37 Baso % (Auto) 0.2 % 10/26/22 16:37 Neut # (Auto) 18.21 K/uL (1.40-6.50) H 10/26/22 16:37 Lymph # (Auto) 1.20 K/uL (1.2-3.4) 10/26/22 16:37 [place] # (Auto) 1.11 K/uL (0.11-0.59) H 10/26/22 16:37 Eos # (Auto) 0.02 K/uL (0-0.50) 10/26/22 16:37 Baso # (Auto) 0.04 K/uL (0-0.2) 10/26/22 16:37 Immature Gran # (Auto) 0.09 K/uL (0.01-0.20) 10/26/22 16:37 Sodium 139 mmol/L (136-145) 10/29/22 06:24 Potassium 3.7 mmol/L (3.5-5.1) 10/29/22 06:24 Chloride 104 mmol/L (98-107) 10/29/22 06:24 Carbon Dioxide 29 mmol/L (21-32) 10/29/22 06:24 Anion Gap 6 (3-11) 10/29/22 06:24 BUN 17 mg/dl (6-23) 10/29/22 06:24 Creatinine 0.98 mg/dl (0.6-1.4) 10/29/22 06:24 Est Cr Clr Drug Dosing 117.0 ml/min 10/29/22 06:24 Est GFR ( Amer) 95.4 ml/min 10/29/22 06:24 Est GFR (Non-Af Amer) 82.3 ml/min 10/29/22 06:24 BUN/Creatinine Ratio 17.3 (10-20) 10/29/22 06:24 Glucose 92 mg/dl (70-99(Fasting)) 10/29/22 06:24 Estimat Average Glucose 105 mg/dl 10/28/22 06:02 Hemoglobin A1c 5.3 % (4.5-5.6) 10/28/22 06:02 Lactate 1.4 mmol/L (0.4-2.0) 10/26/22 19:20 Calcium 8.6 mg/dl (8.6-10.3) 10/29/22 06:24 Phosphorus 3.2 mg/dl (2.5-4.9) 10/27/22 05:23 Magnesium 2.0 mg/dl (1.7-2.4) 10/28/22 06:02 Total Bilirubin 2.7 mg/dl (0.2-1.0) H 10/29/22 06:24 Direct Bilirubin 0.5 mg/dl (0-0.2) H 10/29/22 06:24 AST 28 U/L (13-39) 10/29/22 06:24 ALT 34 U/L (7-52) 10/29/22 06:24 Alkaline Phosphatase 51 U/L (34-104) 10/29/22 06:24 Troponin I High Sens < 2.3 pg/ml (0-20) 10/26/22 16:37 Total Protein 6.7 gm/dl (6.0-8.3) 10/29/22 06:24 Albumin 3.9 gm/dl (3.4-5.0) 10/29/22 06:24 Globulin 3.9 gm/dl (2.5-4.0) 10/26/22 16:37 Albumin/Globulin Ratio 1.3 (0.9-2) 10/26/22 16:37 Lipase 30 U/L (11-82) 10/26/22 16:37 Urine Color [place] 10/27/22 15:20 Urine Appearance Cloudy (Clear) A 10/27/22 15:20 Urine pH 5.5 (4.5-7.5) 10/27/22 15:20 Ur Specific [place] 1.038 (1.000-1.030) H 10/27/22 15:20 Urine Protein Trace (Negative) H 10/27/22 15:20 Urine Glucose (UA) Negative (Negative) 10/27/22 15:20 Urine Ketones 1+ (Negative) H 10/27/22 15:20 Urine Blood Negative (Negative) 10/27/22 15:20 Urine Nitrite Negative (Negative) 10/27/22 15:20 Urine Bilirubin 1+ (Negative) H 10/27/22 15:20 Urine Urobilinogen Negative (Negative) 10/27/22 15:20 Ur Leukocyte Esterase Trace (Negative) H 10/27/22 15:20 Urine WBC (Auto) 5-10 /hpf (0-5) H 10/27/22 15:20 Urine RBC (Auto) 5-10 /hpf (0-4) H 10/27/22 15:20 U Hyaline Cast (Auto) 5-10 /lpf (0-5) H 10/27/22 15:20 U Epithel Cells (Auto) 20-30 /lpf (0-5) H 10/27/22 15:20 Urine Bacteria (Auto) Negative (Negative) 10/27/22 15:20 SARS-CoV-2, RNA, NAAT NEGATIVE (NEGATIVE) 10/26/22 18:55 Impressions Abdomen/Pelvis CT 10/26/22 16:43 CT SCAN OF THE ABDOMEN AND PELVIS WITHOUT IV CONTRAST CLINICAL HISTORY: Generalized abdominal pain. Vomiting. COMPARISON STUDY: Abdominal CT dated 08/14/2020. TECHNIQUE: CT scan of the abdomen and pelvis is performed from the lung bases to the proximal femora. Images are reviewed in the axial, sagittal, and coronal planes. IV contrast was not administered for this examination. Note that the examination is significantly suboptimal without oral and IV contrast. A dose lowering technique was utilized adhering to the principles of ALARA. CT DOSE: 1718.47 mGy.cm FINDINGS: Lung bases: The heart is normal in size and without pericardial effusion. There are scattered coronary artery calcifications. Catheter granulomas are noted. There is elevation of the left hemidiaphragm with bibasilar scarring/atelectasis. No airspace consolidation or pleural effusion is identified. Liver: The unenhanced liver is enlarged, measuring 19 cm in length. The liver demonstrates diffusely diminished attenuation indicating severe steatosis.. There is no intrahepatic biliary ductal dilatation. Gallbladder: Surgically absent noting clips in the gallbladder fossa. Spleen: Normal in size and attenuation. Pancreas: Mildly atrophic and grossly unremarkable. Adrenal glands: Unremarkable. Kidneys: The unenhanced kidneys are normal in size and without hydronephrosis. There are at least 4 nonobstructing right renal calculi which measure up to 5 mm. There are at least 5 nonobstructing left calculi which measure up to 6 mm. No ureteral stone is seen. There is no evidence of contour deforming renal mass lesion. Abdominal vasculature: The abdominal aorta is normal in course and caliber noting scattered foci of atherosclerotic calcification. Bowel: The proximal small bowel loops are distended and fluid-filled, measuring up to 5 cm in diameter. A transition point is suggested in the distal jejunum on axial image #212. The distal small bowel colon are decompressed, and the appearance is consistent with a high-grade small bowel obstruction. No focally thick-walled bowel loops are seen. No pneumatosis intestinalis or portal venous gas is identified. The appendix is well-visualized and normal. Peritoneum: There is no intraperitoneal free air or abdominal ascites. There is evidence of previous ventral hernia repair. Lymphadenopathy: None. Pelvic viscera: The bladder, prostate, and seminal vesicles are normal as visualized. There is a small fat-containing right inguinal hernia. Skeletal structures: No lytic or blastic lesions are seen. IMPRESSION: 1. Small bowel obstruction, with a transition point suggested involving the distal jejunum. This is likely on the basis of adhesions. 2. No intraperitoneal free air is seen. No focally thick-walled bowel loops are identified and there is no pneumatosis intestinalis or portal venous gas. 3. Hepatomegaly and severe hepatic steatosis. 4. Bilateral nephrolithiasis. 5. Additional findings as above. ACT 112: Negative or not required by law. Electronically signed by: Rickey Guajardo M.D. 10/26/2022 5:40 PM Ordered Studies 10/26/22 16:43 CT Abd and Pelvis [CT abd pelvis wo con] Stat Hospital Course (1) SIRS (systemic inflammatory response syndrome): SIRS Hemoconcentration Abnormal urinalysis Lactate levels 1.4 Received IV fluids Urine culture: Preliminary no growth Will consider empiric antibiotics if needed Leukocytosis resolved (2) Small bowel obstruction: Small Bowel Obstruction --CT ABD:Small bowel obstruction, with a transition point suggested involving the distal jejunum. This is likely on the basis of adhesions. No intraperitoneal free air is seen. No focally thick-walled bowel loops are identified and there is no pneumatosis intestinalis or portal venous gas. Hepatomegaly and severe hepatic steatosis. Bilateral nephrolithiasis. -- NG tube discontinued Received IV fluids Appreciate surgery input Minimize IV narcotics as able Tolerated Low fiber diet (3) GERD (gastroesophageal reflux disease): Continue Pepcid (4) Hepatic steatosis: chronic, stable. (5) Hyperbilirubinemia: chronic, takes milk thistle for >20 years. H/O Asymptomatic hyperbilirubinemia per records ? Gilbert's syndrome Further workup as outpatient DVT Px: Lovenox SQ SCDs Code Status Full Code Total Time Total Time Spent Total Time Spent (In Minutes): 50 minutes Discharge Plan Discharge Items Patient Disposition: Home - Self-Care Reason For Visit: SBO Discharge Diagnosis: Small bowel obstruction Suspected urinary tract infection Activity: Per Instructions section Exercise/Sports: Gradually increase as tolerated Non-emergency contact: Primary Care Provider and Surgeon Call non-emergency contact if: you have any medication questions, your symptoms worsen, your pain is concerning for you and you have a fever Follow-up/Referrals: Denver Kramer DO [Primary Care Provider] - Diet: Low Fiber Addtl Attending Provider Instructions: Follow-up with your primary care physician in 1 week as advised Follow-up with your surgeon Dr.Mona Smith as needed --- Your final urine culture results are pending at the time of discharge. Follow-up with your physician for results --Continue low fiber diet for now as recommended by your surgeon Seek immediate medical attention if your symptoms reoccur or worsen Please take all medications as instructed on discharge list below. Please call if you have any questions or problems. You can reach a [facility] hospitalist on duty at [facility] 24 hours a day by calling [phone] Pending Studies at Discharge: Yes Studies:: Urine Culture Stand-Alone Forms: My [facility], Smoking Cessation Medications and DC Order Prescriptions: Continued naproxen [Naprosyn] 500 mg Tablet 500 mg PO BID PRN (Reason: Back Pain) esomeprazole magnesium [Nexium] 20 mg Capsule,Delayed Release(Dr/Ec) 20 mg PO DAILYBB multivitamin Tablet 1 tab PO DAILY milk thistle 500 mg Capsule 500 mg PO DAILY Rx Instructions: give with meal/snack aspirin 81 mg Tablet,Delayed Release (Dr/Ec) 81 mg PO .Q3DAYS Rx Instructions: PER PT "ONLY TAKE EVERY 3 DAYS". Discharge Orders: Discharge Order (Routine); Ordered 10/29/22 Ordered By: Abdoulaye Swift/Other Patient Handouts: Low-Fiber Diet Admission Data Admit Date/Time: 10/26/22 18:00 Attending Provider: Abdoulaye Kimbrough Admit Provider: Selena Lezama Primary Care Provider: Denver Kramer Other Providers: Casi Smith ; Selena Lezama
== END 2022-10-29 13:42 | disposition home or self-care (01) | DRG 389 ==
LOC: ED 16:06 → SUATTDRO 18:00 → 3W 18:00